=== PATIENT | female | born 1990 | race Caucasian/White ===

== ENCOUNTER → 2016-11-07 | Outpatient (REF) | payer OTHER ==
[2016-11-07 13:35] LABS: ANION GAP 9 MEQ/L (8-16); BLOOD UREA NITROGEN 15 MG/DL (7-18); CALCIUM LEVEL 8.9 MG/DL (8.5-10.1); CARBON DIOXIDE LEVEL 28 MEQ/L (21-32); CHLORIDE LEVEL 105 MEQ/L (98-107); CREATININE FOR GFR 0.77 MG/DL (0.55-1.02); FREE T4 0.91 NG/DL (0.76-1.46); GLOMERULAR FILTRATION RATE > 60.0 (>60); GLUCOSE, FASTING 92 MG/DL (70-105); POTASSIUM SERUM 4.3 MEQ/L (3.5-5.1); SODIUM LEVEL 142 MEQ/L (136-145)
[2016-11-07 14:23] LABS: LUTEINIZING HORMONE 6.8 mIU/mL
[2016-11-07 14:24] LABS: FOLLICLE STIMULATING HORMONE 7.3 mIU/mL
== END ==
LOC: M SFHCWAGY 10:41
PROVIDERS: ATTEND Nurse Practitioner Women's Health
DX: N92.6 Irregular menstruation, unspecified (principal)

== ENCOUNTER → 2016-11-30 | Outpatient (CLI) | payer OTHER ==
--- NOTE | 2016-11-30 13:49 | REP ---
PELVIC SONOGRAPHY: HISTORY: Irregular menstrual bleeding. Comparison study, December 17, 2011. FINDINGS: Uterine dimensions are 9.8 x 3.8 x 6.0 cm. Endometrial echo is 1.3 cm thick and centrally placed. No focal uterine mass is seen. No free fluid is noted. Transabdominal and transvaginal scanning are included. Transvaginal dimensions of the right ovary are 4.0 x 2.4 x 2.5 cm. Left ovarian dimensions are 4.4 x 1.9 x 2.7 cm. Visualized bladder interiano are smooth. IMPRESSION: Normal pelvic sonography.
== END ==
LOC: M WHC 11:30
PROVIDERS: ATTEND Nurse Practitioner Women's Health
DX: N92.6 Irregular menstruation, unspecified (principal); Z31.69 Encounter for other general counseling and advice on procreation

== ENCOUNTER → 2017-07-09 | Outpatient (REF) | payer OTHER | LOC: M SFHCWAGY 16:06 | PROVIDERS: ATTEND Nurse Practitioner Women's Health | DX: Z12.4 Encounter for screening for malignant neoplasm of cervix (principal) ==

== ENCOUNTER → 2018-04-09 | Outpatient (REF) | payer MEDICAID ==
[2018-04-09 15:23] LABS: ALBUMIN 3.9 GM/DL (3.2-5.2); ALBUMIN/GLOBULIN RATIO 1.26 (1.00-1.93); ALKALINE PHOSPHATASE 99 U/L (45-117); ALT/SGPT 38 U/L (12-78); AST/SGOT 22 U/L (7-37); BILIRUBIN,DIRECT 0.1 MG/DL (0.0-0.2); BILIRUBIN,TOTAL 0.4 MG/DL (0.2-1.0); CHOLESTEROL LEVEL 155 MG/DL (<200); HDL CHOLESTEROL 52 MG/DL (>40); NON-HDL-C 103 MG/DL; TRIGLYCERIDES LEVEL 180 MG/DL (<150)
[2018-04-09 15:48] LABS: ESTIMATED AVERAGE GLUCOSE 105 MG/DL (60-110); HEMOGLOBIN A1c 5.3 %
== END ==
LOC: M SFHCLERA 09:58
DX: E66.01 Morbid (severe) obesity due to excess calories (principal)

== ENCOUNTER 2021-06-01 00:38 | Emergency (ER) | payer OTHER, MEDICAID ==
[~2021-06-01] VITALS: Ht 167.6 cm; Wt 152.1 kg
[2021-06-01 00:40] VITALS: BP 133/81
--- OUTSIDE RECORDS SUMMARY | 2021-06-01 00:48 | CCD ---
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 Name Role Phone NO, PCP Unavailable Unavailable [facility] [place] Unavailable Unavailable Rosita Edwards MD Unavailable Unavailable Rosita Edwards MD Unavailable Unavailable Rosita Edwards MD Unavailable Unavailable Rosita Edwards MD Unavailable Unavailable Rosita Edwards MD Unavailable Unavailable Rosita Edwards MD Unavailable Unavailable Rosita Edwards MD Unavailable Unavailable Rosita Edwards MD Unavailable Unavailable Rosita Edwards MD Unavailable Unavailable Rosita Edwards MD Unavailable Unavailable Rosita Edwards MD Unavailable Unavailable Rosita Edwards MD Unavailable Unavailable Rosita Edwards MD Unavailable Unavailable Rosita Edwards MD Unavailable Unavailable Rosita Edwards MD Unavailable Unavailable Rosita Edwards MD Unavailable Unavailable Rosita Edwards MD Unavailable Unavailable Rosita Edwards MD Unavailable Unavailable Rosita Edwards MD Unavailable Unavailable Rosita Edwards MD Unavailable Unavailable Rosita Edwards MD Unavailable Unavailable Rosita Edwards MD Unavailable Unavailable Rosita Edwards MD Unavailable Unavailable Rosita Edwards MD Unavailable Unavailable Rosita Edwards MD Unavailable Unavailable Rosita Edwards MD Unavailable Unavailable Rosita Edwards MD Unavailable Unavailable Rosita Edwards MD Unavailable Unavailable Rosita Edwards MD Unavailable Unavailable Rosita Edwards MD Unavailable Unavailable Rosita Edwards MD Unavailable Unavailable Rosita Edwards MD Unavailable Unavailable Rosita Edwards MD Unavailable Unavailable Rosita Edwards MD Unavailable Unavailable Rosita Edwards MD Unavailable Unavailable Rosita Edwards MD Unavailable Unavailable Rosita Edwards MD Unavailable Unavailable Rosita Edwards MD Unavailable Unavailable Rosita Edwards MD Unavailable Unavailable Rosita Edwards MD Unavailable Unavailable Rosita Edwards MD Unavailable Unavailable Rosita Edwards MD Unavailable Unavailable Rosita Edwards MD Unavailable Unavailable Rosita Edwards MD Unavailable Unavailable Rosita Edwards MD Unavailable Unavailable Rosita Edwards MD Unavailable Unavailable Rosita Edwards MD Unavailable Unavailable Birchenough, R Phyllis DO Unavailable Unavailable Birchenough, R Phyllis DO Unavailable Unavailable Birchenough, R Phyllis DO Unavailable Unavailable Birchenough, R Phyllis DO Unavailable Unavailable Birchenough, R Phyllis DO Unavailable Unavailable Birchenough, R Phyllis DO Unavailable Unavailable Birchenough, R Phyllis DO Unavailable Unavailable Birchenough, R Phyllis DO Unavailable Unavailable Birchenough, R Phyllis DO Unavailable Unavailable Birchenough, R Phyllis DO Unavailable Unavailable Birchenough, R Phyllis DO Unavailable Unavailable Birchenough, R Phyllis DO Unavailable Unavailable Birchenough, R Phyllis DO Unavailable Unavailable Birchenough, R Phyllis DO Unavailable Unavailable Birchenough, R Phyllis DO Unavailable Unavailable Birchenough, R Phyllis DO Unavailable Unavailable Birchenough, R Phyllis DO Unavailable Unavailable Birchenough, R Phyllis DO Unavailable Unavailable Birchenough, R Phyllis DO Unavailable Unavailable Chema Sánchez MD Unavailable Unavailable Doctor Provided, Family PHYS No Family Unavailable U navailable TURRIN, DELANO Unavailable Unavailable TURRIN, DELANO Unavailable Unavailable TURRIN, DELANO Unavailable Unavailable TURRIN, DELANO Unavailable Unavailable Rosita Edwards MD Unavailable Unavailable Rosita Edwards MD Unavailable Unavailable Rosita Edwards MD Unavailable Unavailable Rosita Edwards MD Unavailable Unavailable Rosita Edwards MD Unavailable Unavailable Rosita Edwards MD Unavailable Unavailable Rosita Edwards MD Unavailable Unavailable Rosita Edwards MD Unavailable Unavailable Rosita Edwards MD Unavailable Unavailable Rosita Edwards MD Unavailable Unavailable Rosita Edawrds MD Unavailable Unavailable Rosita Edwards MD Unavailable Unavailable Rosita Edwards MD Unavailable Unavailable Rosita Edwards MD Unavailable Unavailable Brown, M Wander MD Unavailable Unavailable BrownRosita Wander MD Unavailable Unavailable Brown M Wander MD Unavailable Unavailable Brown, M Wander MD Unavailable Unavailable Brown, M Wander MD Unavailable Unavailable Brown M Wander MD Unavailable Unavailable Brown M Wander MD Unavailable Unavailable Brown M Wander MD Unavailable Unavailable Brown, M Wander MD Unavailable Unavailable Brown, M Wander MD Unavailable Unavailable Brown, M Wander MD Unavailable Unavailable Brown, M Wander MD Unavailable Unavailable Brown, M Wander MD Unavailable Unavailable Brown, M Wander MD Unavailable Unavailable Brown, M Wander MD Unavailable Unavailable Brown, M Wander MD Unavailable Unavailable Brown, M Wander MD Unavailable Unavailable Brown, M Wander MD Unavailable Unavailable Brown, M Wander MD Unavailable Unavailable Brown, M Wander MD Unavailable Unavailable Brown, M Wander MD Unavailable Unavailable Brown M Wander MD Unavailable Unavailable Brown M Wander MD Unavailable Unavailable Brown, M Wander MD Unavailable Unavailable Brown, M Wander MD Unavailable Unavailable Brown M Wander MD Unavailable Unavailable Brown, M Wander MD Unavailable Unavailable Brown M Wander MD Unavailable Unavailable Rosita Edwards Wander MD Unavailable Unavailable Rosita Edwards Wander MD Unavailable Unavailable Rosita Edwards Wander MD Unavailable Unavailable Brown M Wander MD Unavailable Unavailable Jerry M Wander MD Unavailable Unavailable Levi Schmid MD Unavailable Unavailable Re-disclosure Warning The records that you are about to access may contain information from federally-assisted alcohol or drug abuse programs. If such information is present, then the following federally mandated warning applies: This information has been disclosed to you from records protected by federal confidentiality rules (42 CFR part 2). The federal rules prohibit you from making any further disclosure of this information unless further disclosure is expressly permitted by the written consent of the person to whom it pertains or as otherwise permitted by 42 CFR part 2. A general authorization for the release of medical or other information is NOT sufficient for this purpose. The Federal rules restrict any use of the information to criminally investigate or prosecute any alcohol or drug abuse patient.The records that you are about to access may contain highly sensitive health information, the redisclosure of which is protected by Article 27-F of the [facility] Public Health law. If you continue you may have access to information: Regarding HIV / AIDS; Provided by facilities licensed or operated by the [facility] Office of Mental Health; or Provided by the [facility] Office for People With Developmental Disabilities. If such information is present, then the following [facility] mandated warning applies: This information has been disclosed to you from confidential records which are protected by state law. State law prohibits you from making any further disclosure of this information without the specific written consent of the person to whom it pertains, or as otherwise permitted by law. Any unauthorized further disclosure in violation of state law may result in a fine or longterm sentence or both. A general authorization for the release of medical or other information is NOT sufficient authorization for further disc losure. Family History Family Member Name Family Member Gender Family Member Status Date o f Status Description Data Source(s) Unknown Condition [facility] Unknown Condition [facility] Unknown Condition [facility] Unknown Condition [facility] Unknown Condition [facility] Unknown Condition [facility] Encounters Encounter Providers Location Date Indications Data Source(s ) Outpatient Attender: [facility] 05/31/2021 04:4 0:00 PM EDT [facility] Emergency Attender: DELANO Moesultant: PCP NO 05/31/2021 03:33:00 PM EDT - 05/31/2021 07:25:00 PM EDT [facility] Patient discharged. Attender: Wander Edwards MD 05/26/2021 04:14:50 PM EDT [facility] Outpatient Attender: Wander Edwards MDAdmitter: Wander avitia MD 05/24/2021 08:32:00 AM EDT - 05/24/2021 07:07:00 PM EDT IRREGULAR BLEEDING, N92.6 [facility] IRREGULAR BLEEDING, N92.6 Patient discharged. Outpatient Attender: Wander Edwards MD 05/22/2021 02:50:14 PM EDT [facility] Outpatient Attender: Wander Edwards MD 05/22/2021 01: 53:00 PM EDT ROBOTIC ASSISTED LAPAROSCOPIC HYSTERECTOMY BILATERAL SALPING [facility] ROBOTIC ASSISTED LAPAROSCOPIC HYSTERECTO MY BILATERAL SALPING Outpatient Attender: Phyllis Ornelaserrer: No Famil y Doctor Provided 01/17/2021 12:54:00 PM EDT - 01/17/2021 01:44:00 PM EDT [facility] [address] [place], [place] [id number] 06/21/2020 12:00:00 AM EST eCW1 ([facility]) Outpatient Attender: Dylon Schmid MD 06/02/2020 05:45: 00 PM EDT Z12.4 [facility] Z12.4 Outpatient Attender: Dylon Schmid MDReferrer: Chema elias MD 06/02/2020 11:26:00 AM EDT - 06/02/2020 12:10:00 PM EDT [facility] Immunizations Vaccine Date Status Description Data Source(s) COVID-19 VACCINE Pfizer 01/29/2021 12:00:00 AM EDT completed [facility] Vaccine Series Complete: YESThis Data wa s Submitted to [facility] Via [employer]. COVID-19 VACC, MRNA(PFIZER)/PF 01/29/2021 12:00:00 AM EDT completed [facility] COVID-19 VACC, MRNA(PFIZER)/PF 01/08/2021 12:00:00 AM EDT completed [facility] COVID-19 VACCINE Pfizer 01/08/2021 12:00:00 AM EDT completed [facility] Vaccine Series Complete: NOThis Data was Submitted to [facility] Via [employer]. Medications Medication Brand Name Start Date Product Form Dose Route Admi nistrative Instructions Pharmacy Instructions Status Indications Reaction Description Data Source(s) Metformin hydrochloride 500 MG Oral Tablet Metformin 08/24 09:49:51 AM EST 500 MG active [facility] Metformin hydrochloride 500 MG Oral Tablet Metformin 08/24 09:47:28 AM EST 500 MG completed [facility] Metformin hydrochloride 500 MG Oral Tablet Metformin 06/02 12:15:59 PM EDT 500 MG completed [facility] Metformin hydrochloride 500 MG Oral Tablet Metformin 05/23 12:53:53 PM EDT 500 MG completed [facility] Metformin hydrochloride 500 MG Oral Tablet Metformin 05/23 12:53:53 PM EDT 500 MG completed [facility] Metformin hydrochloride 500 MG Oral Tablet Metformin 11/23 01:23:52 PM EDT 500 MG completed [facility] Metformin hydrochloride 500 MG Oral Tablet Metformin 11/23 01:23:52 PM EDT 500 MG completed [facility] Acetaminophen 325 MG Oral Tablet Acetaminophen (Tyleno l) 325 MG tablet Acetaminophen (Tylenol) 325 MG tablet 08/07/2017 02:05:00 PM EST 650 M G completed [facility] Insurance Providers Payer name Policy type / Coverage type Policy ID Covered constitution party ID Covered constitution party's relationship to rodrigez Policy Rodrigez [id number] SP [id number] U UN COMMUNITY PLAN MCDO [id number] SP [id number] UN COMMUNITY PLAN XIX - OP/ER [id number] 18 [id number] [facility]/P [id number] [facility] HEA [id number] S [id number] ANSI-Medicaid [id number] ANSI-Medicaid [id number] ANSI-Medicaid [id number] ANSI-Medicaid [id number] MEDICAID [id number] SP [id number] [facility](MCAID) O [id number] S [id number] [facility] O [id number] S [id number] [place] [id number] S [id number] UN COMMUNITY PLAN MCDO [id number] SP [id number] MADDIE [id number] SP [id number] MADDIE [id number] SP [id number] [place] [id number] S [id number] [place] [id number] SP [id number] [employer] [id number] MO2 [id number] [employer] PPO P [id number] [facility] PLAN [id number] MO2 [id number] Problems, Conditions, and Diagnoses No Information Surgeries/Procedures No Information Results ID Date Data Source [id number] 05/31/2021 03:33:00 PM EDT [facility] 1 OrderSheet [facility] Emergency Department [address] [place] [address] Phone #: ext- [phone] 05/31/2021 15:33 Patient: TOYA MAYA Sex: F : 1990 Age: 31yWEIGHT:152.8 kg (M) HEIGHT:62 inches (E) BMI:61.7ALLERGIES: No Known Drug AllergyCHIEF COMPLAINT: "changed" mental statusLAB ORDERSOrder Description Priority Entered Acknowledged InitialedAcetaminophen STAT 16:29 05/31/2021 16:45 Sorbhe,Level Joel TEJADA;Ammonia Level STAT 16:29 05/31/2021 16:45 Joel Gilbert R.N.;Blood Culture STAT 16:29 05/31/2021 16:45 Sorbero,q10m X2 (Sched Joel Holt R.NChristal16:29 05/31/2021) PA;Blood Culture STAT 16:29 05/31/2021 16:45 Sorbero,q10m X2 (Sched Joel JohansenNChristal16:39 05/31/2021) TERRELL;CBC w Diff STAT 16:29 05/31/2021 16:45 Joel Gilbert R.N.;CMP STAT 16:29 05/31/2021 16:45 Joel Gilbert R.N.;ETOH STAT 16:29 05/31/2021 16:45 Joel Gilbert R.N.;Glucose, Random STAT 16:29 05/31/2021 16:45 Joel Gilbert R.N.;Lactic Acid STAT 16:29 05/31/2021 16:45 Joel Gilbert R.N.;PT/PTT STAT 16:29 05/31/2021 16:45 Joel Gilbert R.N.;Salicylate Level STAT 16:29 05/31/2021 16:45 Joel Gilbert R.N.; 2 OrderSheet [facility] Emergency Department [address] [place] [address] Phone #: ext- [phone] 05/31/2021 15:33 Patient: TOYA MAYA Sex: F : 1990 Age: 31yTroponin-T STAT 16:29 05/31/2021 16:46 Joel Gilbert R.N.;TSH STAT 16:29 05/31/2021 16:46 Joel Gilbert R.N.;Urine Drug Screen STAT 16:29 05/31/2021 Cancelled: Patient Refusal 19:25 Jesus De La Garza RN PA;Venous Blood Gas STAT 16:29 05/31/2021 16:46 Joel Gilebrt R.N.;UA Reflex to UA 16:29 05/31/2021 Ack'd: 19:24 Jesus De La Garza RNCulture Joel Kumar Cancelled: Patient Refusal 19:25 Jesus TEJADA; Frederic HALLDIAGNOSTIC STUDY ORDERSOrder Description Priority Entered Acknowledged InitialedCT Head W/O Cont STAT 16:29 05/31/2021 16:46 Ofelia,(Oxygen?(No)) Joel TEJADA; Reason for Study: Altered Mental StatusChest Portable 1 STAT 16:29 05/31/2021 16:46 Ofelia,View Joel Holt RChristalNChristal(Oxygen?(No)) PA; Reason for Study: Chest PainCT CTA CHEST STAT 18:36 05/31/2021 Initialed: 18:46 Jonathon Gilbert R.N.(NONCOR) Julian Kumar Cancelled: Patient Refusal 19:11 William BARLOW PA; Stacy TEJADA(Oxygen?(No))(IV?(Yes)) Reason for Study: SOB AMS recent surgery, evaluate for PEMEDICATION/IV/DRIP/FLUID ORDERSOrder Description Priority Entered Acknowledged InitialedNS IV 1000 mL 16:29 05/31/2021 17:01 Ofelia,Bolus: : Bolus 1000 Joel Holt R.N.mL (X1) PA;GENERAL ORDERSOrder Description Priority Entered Acknowledged InitialedCardiac Monitor 16:29 05/31/2021 16:45 Ofelia(continuous) Joel JohansenNChristal 3 OrderSheet [facility] Emergency Department [address] [place] [address] Phone #: ext- [phone] 05/31/2021 15:33 Patient: TOYA MAYA Sex: F : 1990 Age: 31y PA;EKG 16:29 05/31/2021 16:45 Joel GilbertNChristal PA;NPO 16:29 05/31/2021 16:45 Joel Gilbert.NChristal PA;Obtain Old Records 16:29 05/31/2021 16:45 Joel Gilbert.NChristal PA;Pulse oximeter 16:29 05/31/2021 16:45 Ofelia(Continuous) Joel Holt R.N. PA;Saline Lock 16:29 05/31/2021 17:01 Joel Gilbert.NChristal PA;Vitals 16:29 05/31/2021 16:45 Joel Gilbert R.N.;[Electronically signed by Jesus De La Garza RN (19:25 021)][Electronically signed by Joel Kumar (21:51 05/31/2021)][Electronically locked by Jesus De La Garza RN (19:25 05/31/2021)] Name Value Range Interpretation Code Description Data Isabel rce(s) Supporting Document(s) ID Date Data Source [id number] 05/31/2021 03:33:00 PM EDT [facility] 1 Medication Reconciliation Report [facility] Emergency Department [address] [place] [address] Phone #: ex t- [phone] 05/31/2021 15:33 Patient: TOYA MAYA Sex: F : 1990 Age: 31yWeight: 152.8 kgHeight/Length: 62 in.BMI: 61.7ALLERGIES: No Known Drug AllergyThe patient's Home Medications are listed below:CONTINUE TAKING THE FOLLOWING MEDICATIONS: Claritin Oral, dailyThe source(s) of the original Home Medication information:Not obtained.The following Medications were given to the patient in the Emergency Department:NS [IV] IV Fluids bolus 0, then 1500 mL/hr, administered: 17:01 05/31/2021The following Medications were prescribed to the patient:None. Name Value Range Interpretation Code Description Data Isabel rce(s) Supporting Document(s) ID Date Data Source [id number] 05/31/2021 03:33:00 PM EDT [facility] 1 Medication Administration Record [facility] Emergency Department [address] [place] [address] Phone #: ext- [phone] 05/31/2021 15:33 Patient: TOYA MAYA Sex: F : 1990 Age: 31yWeight: 152.8 kgHeight/Length: 62 inBMI: 61.7ALLERGIES: No Known Drug Allergy Date/Time Medication Administered Medication OrderedStart NS [IV] NS IV 1000 mL Bolus: : Bolus [id number] 05/31/2021 Dose: IV Fluids mL (X1)Jonathon Gilbert R.N. Rate: 1500 mL/hr over 40 minute(s)---- Dispensed: 1000 mL bagStop Site: #1 right AC17:59 05/31/2021Jonathon romero R.N. Name Value Range Interpretation Code Description Data Isabel rce(s) Supporting Document(s) ID Date Data Source [id number] 05/31/2021 03:33:00 PM EDT [facility] 1 General Instructions [facility] Emergency Department [address] [place] [address] Phone #: ext- [phone] 05/31/2021 15:33 Patient: TOYA MAYA Sex: F : 1990 Age: 31yINSTRUCTIONSWarnings: Further evaluation is necessary in order to conduct further tests. It is very important to follow upwith a healthcare provider.GENERAL WARNINGS: Return or contact your physician immediately if your condition worsens orchanges unexpectedly, if not improving as expected, or if other problems arise. Specifically return ifbreathing difficulty worsens.Your Current Medications: Your current home medications have been reviewed.CONTINUE TAKING THE FOLLOWING MEDICATIONS:Claritin Oral : daily.Follow-up:Follow up with your doctor tomorrow. Reason for referral: evaluation, treatment and send for OutpatientCTA. Summary of care provided to patient.Understanding of the discharge instructions verbalized by patient and family.AMA warnings: Time of assessment: 19:13 05/31/2021. Oriented to person, place, and time. Givesappropriate answers and rational explanation of refusal of care. No indication for involuntary commitmentis present, suicidal ideations, slurred speech or homicidal ideations. Speaks coherently.Clinical Impression: the patient has the capacity to make decisions regarding the medical care offered.Relevant issues reviewed and discussed with the patient and family. Aware of suspected diagnosissuggested by screening exam (Rule out Pulmonary E mbolism). The suspected diagnosis, based upon theinitiated medical screening exam, is Rule out PE and has been discussed with the patient and family.Acknowledges understanding of the reasons for recommendations regarding medical treatment andmedical tests. The recommended medical care being refused is CTA Cheat and has been discussed withthe patient and family. The risks of refusing recommended care that were disclosed are .Alternatives for the patient's care that were offered yet not feasible include transfer and evaluation byanother physician; alternatives for the patient's care that were o ffered yet unavailable include calling thepatient's physician. Discharge instructions were provided to the patient and responsible constitution party.REFUSAL OF CARE STATEMENT (patient to review and sign in discharge instructions):I have read this paragraph. I understand that a doctor at this hospital wants to give me certain medicalcare. The doctor explained that care to me, and I understand what that care is. The doctor also explainedto me what could happen to me if I leave here without having that care, and I understand what he said. Iknow that I am welcome to return to this hospital at any time to receive the recommended care or any othercare that I may need at any time, regardless of my ability to pay for such care. 2 General Instructions [facility] Emergency Department [address] [place] [address] Phone #: ext- [phone] 05/31/2021 15:33 Patient: TOYA MAYA Sariah Sex: F : 1990 Age: 31y(Electronically signed by TERRELL Pineda 05/31/2021 21:51) Name Value Range Interpretation Code Description Data Isabel rce(s) Supporting Document(s) ID Date Data Source [id number] 05/31/2021 03:33:00 PM EDT [facility] 1 Clinical Report - Nurses [facility] Emergency Department [address] [place] [address] Phone #: ext- [phone] 05/31/2021 15:33 Patient: TOYA MAYA Sex: F : 1990 Age: 31yTRIAGEArrived by private vehicle. Historian: patient.Acuity: LEVEL 3.Chief Complaint: (Confusion, Paranoid thoughts).Alert. No acute distress.This started 2 AM. Patient was last known well (18:00 05/30/2021). ( PT brought in by sister for reportsof pt being confused and paranoid. PT had [facility] Pts sister reports she was acting at baseline when she went to bed last night around 6 pm. PTshusband woke up around 2 am and said pt was hallucinating and confused. She was also complaining ofchest pain. Pt denies chest pain at time of triage.). She has had altered mental status reported by family.Treatment TROLLEY CLEANER:Seen within the last 30 days- hospitalized; seen for different problems.SEPSIS SCREEN: SIRS SCREEN NEGATIVE. SEPSIS SCREEN NEGATIVE. No suspected or confirmedsigns of infection present.CHANDA COMA SCORE: 15- eyes open- spontaneous (4); best verbal response- oriented (5); bestmotor response- obeys commands (6). --16:07 05/31/21 Rica Schrader R.N.15:59 05/31/21. BP: 148/84. HR: 81. RR: 18. O2 saturation: 100%. Temp: 97.1 F. Pain level now 0/10.--16:07 05/31/21 Rica Schrader R.N.Weight: 152.8 kg measured. Height/Length: 62 inches Estimated. BMI: 61.7. --16:05 05/31/21 Rica Schrader R.N.MedicationsClaritin Oral, daily. --16:05 05/31/21 Rica Schrader R.N.AllergiesNo Known Drug Allergy. --16:05 05/31/21 Rica Schrader R.N.PROBLEMS:Asthma.Seasonal allergic rhinitis.Asperger's disorder. --16:06 Rica Schrader R.N.ADDITIONAL SURGERIES: 2 Clinical Report - Nurses [facility] Emergency Department [address] [place] [address] Phone #: ext- [phone] 05/31/2021 15:33 Patient: TOYA MAYA Sex: F : 1990 Age: 31y Hysterectomy. PAD surgery. --16:06 05/31/21 Rica Schrader R.N. History PAST MEDICAL HX: Immunizations: up-to-date. Has had a hysterectomy. SOCIAL HX: Never smoker. No alcohol use or drug use. She was offered HIV testing but declined and hepatitis C testing but declined. She has not traveled outside the [place] Infectious disease exposure: The patient was not exposed to C-diff, MRSA, VRE, CRE or Coronavirus. SELF HARM ASSESSMENT: Self harm assessment was performed. The patient answered "no" to the question(s) "Have you recently felt down, depressed, or hopeless?", "Do you have thoughts of harming or killing yourself?", "Do you have a plan for harming or killing yourself?", "Have you recently had thoughts about harming or killing others?", "Do you have any dangerous items in your possession?", "Have you noticed less interest or pleasure in doing things?", "Are you here because you tried to hurt yourself?" and "Have you ever tried to hurt yourself before today?". ABUSE ASSESSMENT: No report of abuse. NUTRITIONAL RISK ASSESSMENT: The nutritional risk assessment revealed no deficiencies. FUNCTIONAL ASSESSMENT: Functional assessment: no impairments noted. LEARNING NEEDS ASSESSMENT: The learning needs assessment revealed no barriers. FALL RISK ASSESSMENT: Fall risk assessment completed. No risk factors identified. SKIN INTEGRITY ASSESSMENT: Skin integrity risk assessment completed. No skin integrity risk identified. --16:07 05/31/21 Rica Schrader R.N. Interventions Identification band on patient. To treatment room. No allergy band on patient. --16:07 05/31/21 Rica Schrader R.N.PHYSICAL VJBXHTDTPE32:17 05/31/21. Ambulatory to room. Patient gowned.GENERAL / NEURO / PSYCH: Awake. Oriented X 4. Alert. Appears in no acute distress. Speechnormal. Mood/affect normal. Moves all extremities equally. No motor deficit. No sensory deficit.HEENT: No facial asymmetry noted. Pharynx within normal limits.RESPIRATORY: Breath sounds within normal limits. Respirations not labored.CVS: Capillary refill less than 2 seconds.SKIN: Skin is intact, warm and dry. --16:24 05/31/21 Jonathon Gilbert R.N.NURSING PROGRESS NOTES16:25 05/31/21. Reassurance given. Two patient identifiers checked. Call light placed in reach. Side 3 Clinical Report - Nurses [facility] Emergency Department [address] [place] [address] Phone #: ext- [phone] 05/31/2021 15:33 Patient: TOYA MAYA Sex: F : 1990 Age: 31y rails up x 1. Bed placed in lowest position. Brakes of bed on. Patient ready for evaluation- PA notified. --16:25 05/31/21 Jonathon Gilbert R.N. 16:57 05/31/21. BP: 151/80. HR: 80. RR: 16. O2 saturation: 100%. --16:57 05/31/21 Alexia CRUSHERDemetria RODRÍGUEZ 16:56 05/31/2021 Site #1 started via IV in the right antecubital space with an 20g angiocath, with aseptic technique and good blood return; one attempt. Saline lock flushed with 10 mL saline. --17:01 05/31/21 Jonathon Gilbert R.N. 17:01 05/31/2021 Started bag #1 1000 mL IV Fluids NS; at 1500 mL/hr over 40 minute(s) via site #1 via IV pump. Allergies verified and confirmed 5 rights. IV patency established. IV site checked: no pain, redness, or swelling. IV flushed thoroughly pre- and post-medication administration. Information reviewed with patient including reason for taking this medication, signs of allergic reaction and precautions. Verbalizes understanding. --17:01 05/31/21 Jonathon Gilbert R.N. 17:30 05/31/21. BP: 146/83. HR: 94. RR: 15. O2 saturation: 100%. --17:30 05/31/21 [facility] 17:59 05/31/21. BP: 140/66. HR: 80. RR: 18. O2 saturation: 100%. --17:59 05/31/21 [facility] 17:59 05/31/2021 IV Fluids NS via IV site #1 Discontinued: bag #1 completed. Total amount infused: 1000 mL. IV patency established. IV site checked: no pain, redness, or swelling. IV flushed thoroughly. --18:00 05/31/21 Jonathon Gilbert R.N. 19:10 05/31/21. BP: 140/68. HR: 84. RR: 18. O2 saturation: 100%. --19:11 05/31/21 Alexia CRUSHERDemetria RODRÍGUEZ.DISPOSITION / DISCHARGE 19:10 10/20/21. BP: 140/68. HR: 84. RR: 18. O2 saturation: 100%. --19:13 05/31/21 Demetria Parsons ED Chanda Coma Scale: 15- eyes open- spontaneous (4); best verbal response- oriented (5); best motor response- obeys commands (6). Cardiac rhythm: normal sinus rhythm. The patient left the Emergency Department against medical advice and without completion of treatment; patient was accompanied by a chief inspector. The patient appears to be alert, oriented x4, coherent and in no acute distress. The patient notified staff prior to leaving the department and stated is leaving due to personal reasons. Notified the ED physician of patient departure. Prior to leaving, she was advised to stay for completion of treatment and return if needed. She was informed of the risks of leaving. Patient signed form prior to leaving. She left the Emergency Department ambulatory and via private vehicle. --19:23 05/31/21 Jesus De La Garza RN 19:22 05/31/21. Pain level now: 0/10. --19:23 05/31/21 Jesus De La Garza RN 4 Clinical Report - Nurses [facility] Emergency Department [address] [place] [address] Phone #: ext- [phone] 05/31/2021 15:33 Patient: TOYA MAYA Sex: F : 1990 Age: 31y 19:15 05/31/21. Temp: 98.1 F. --19:24 05/31/21 Jesus De La Garza RN.Locked/Released at 05/31/2021 19:25 by Jesus De La Garza RN Name Value Range Interpretation Code Description Data Isabel rce(s) Supporting Document(s) ID Date Data Source [id number] 05/31/2021 03:33:00 PM EDT [facility] 1 Clinical Report - Physicians/Mid Levels [facility] Emergency Department [address] [place] [address] Phone #: ext- [phone] 05/31/2021 15:33 Patient: TOYA MAYA Sex: F : 1990 Age: 31y Time Seen: 16:17 05/31/2021. Arrived- By private vehicle. Historian- patient and sister.HISTORY OF PRESENT ILLNESS Chief Complaint: CHANGED MENTAL STATUS. This started last night and is still present. It was abrupt in onset and has been intermittent. The patient has been disoriented and confused. (PT brought in by sister for reports of pt being confused and paranoid. PT had an outpatient laparoscopic hysterectomy done last Saturday at [facility]. Pts sister reports she was acting at baseline when she went to bed last night around 6 pm. PTs woke up around 2 am and said pt was hallucinating and confused. She was also complaining of chest pain. Pt denies chest pain at time of triage.). She has had altered mental status reported by family.). The patient was not found unresponsive. Not a snf resident. No history of chronic dementia. No change in diabetic routine, alcohol recently, recent drug use or medication given prior to arrival. Dextro stick was not low prior to arrival. No weakness, numbness or recent fall. No difficulty walking. Similar symptoms previously. None. Recent medical care: Not recently seen/assessed.REVIEW OF SYSTEMSThe patient has had a hysterectomy. No fever, headache, head injury, dizziness or difficulty breathing.No cough, sputum production, blurred vision, sore throat or abdominal pain. No nausea, diarrhea, blackstools, difficulty with urination or vomiting. No bloody stools. The patient has had chest pain.PAST HISTORYProblems:Asthma.Seasonal allergic rhinitis.Asperger's disorder. Additional Surgeries: Hysterectomy. PAD surgery. Medications: Claritin Oral, daily. Allergies: No Known Drug Allergy.SOCIAL HISTORYNever smoker. No alcohol use or drug use. 2 Clinical Report - Physicians/Mid Levels [facility] Emergency Department [address] [place] [address] Phone #: ext- [phone] 05/31/2021 15:33 Patient: TOYA MAYA Sex: F : 1990 Age: 31yPHYSICAL EXAMVital Signs: 05/31/2021 15:59 BP: 148/84. MAP: 105. HR: 81. RR: 18. O2 saturation: 100%. Temp: 97.1F. Have been reviewed as abnormal. Hypertensive. Oxygen saturation normal.Appearance: Alert. No acute distress.Head: Head atraumatic.Eyes: Pupils equal, round and reactive to light.ENT: Normal ENT inspection. Airway intact. Moist mucous membranes. Pharynx normal.Neck: Normal inspection. Neck supple.CVS: Normal heart rate and rhythm. Heart sounds normal.Respiratory: No respiratory distress. Decreased air movement. Breath sounds normal.Abdomen: Soft and nontender. No orga nomegaly.Back: Normal inspection.Skin: Skin warm and dry. Normal skin color. No rash. Normal skin turgor.Extremities: Extremities exhibit normal ROM. No lower extremity edema.Neuro: Alert. Oriented X 3. Mood/affect normal. Speech normal. Cranial nerves normal (as tested).No cerebellar findings. No motor deficit. No sensory deficit. Reflexes normal.LABS, X-RAYS, AND EKGChest X-ray: No acute disease. Views: supine AP (portable). The X-rays were interpreted by theradiologist and contemporaneously by me. Interpretation time: 19:10 05/31/2021.Laboratory Tests: Laboratory tests have been ordered, with results reviewed and considered in themedical decision making process. Acetaminophen Level: (RAVI: 05/31/2021 16:40) ( MsgRcvd 05/31/2021 17:27) Final results Test Result Flag Units (Reference) ACETAMINOPHEN <5.0 UG/ML (0.0 - 30.0) Ammonia Level: (RAVI: 05/31/2021 16:40) ( MsgRcvd 05/31/2021 17:33) Final results Test Result Flag Units (Reference) AMMONIA <17.0 L UG/DL (18.7 - 86.9) CBC w Diff: (RAVI: 05/31/2021 16:40) ( MsgRcvd 05/31/2021 17:02) Final results Test Result Flag Units (Reference) CBC W/AUTOMATED DIFF COMPLETE BLOOD COUNT WBC 10.5 10/uL (4.2 - 11.0) RBC 4.48 10/uL (4.20 - 5.40) HEMOGLOBIN 10.7 L g/dL (12.0 - 16.0) HEMATOCRIT 34.4 L % (37.0 - 47.0) MCV 76.8 L fL (81.0 - 101) MCH 23.9 L pg (27.0 - 34.0) MCHC 31.1 g/dL (31.0 - 36.0) RDW 16.9 H % (11.5 - 14.5) PLATELETS 413 10/uL (150 - 450) MPV 8.8 fL (7.4 - 10.4) NEUT 63.2 % (37.0 - 80.0) LYMPH 28.4 % (25.0 - 40.0) MONO 6.2 % (3.0 - 8.0) EOS 0.7 % (0.0 - 7.0) 3 Clinical Report - Physicians/Mid Levels [facility] Emergency Department [address] [place] [address] Phone #: ext- [phone] 05/31/2021 15:33 Patient: TOYA MAYA Sex: F : 1990 Age: 31y BASO 0.4 % (0.0 - 2.5) %IG 1.1 H % (0.0 - 0.0) %NRBC 0.0 % (0.0 - 0.0) #NEUT 6.63 10/uL (2.00 - 6.90) #LYMPH 2.97 10/uL (0.60 - 3.40) #MONO 0.65 10/uL (0.00 - 0.90) #EOS 0.07 10/uL (0.00 - 0.70) #BASO 0.04 10/uL (0.00 - 0.20) #IG 0.11 H 10/uL (0.00 - 0.10) #NRBC 0.00 10/uL (0.00 - 0.00) MANUAL DIFF NOT INDICATED RBC MORPH NOT INDICATEDCMP: (RAVI: 05/31/2021 16:40) ( MsgRcvd 05/31/2021 17:27) Final results Test Result Flag Units* * (Reference) COMPREHENSIVE METABOLIC PANEL COMPREHENSIVE METABOLIC PANEL SODIUM 139 mEq/L (134 - 153) POTASSIUM 3.8 mEq/L (3.6 - 5.0) CHLORIDE 103 mEq/L (98 - 107) CO2 22 MEQ/L (22 - 30) GLUCOSE 95 MG/DL (70 - 99) BUN 9 MG/DL (7 - 21) CREATININE 1.0 MG/DL (0.7 - 1.5) BUN/CREAT 9 (8 - 27) TOTAL PROTEIN 6.6 G/DL (6.3 - 8.2) ALBUMIN 4.2 G/DL (3.9 - 5.0) GLOBULIN 2.4 GM/DL (2.4 - 3.2) A/G RATIO 1.8 (0.8 - 2.0) CALCIUM 9.3 MG/DL (8.4 - 10.2) TOTAL BILI <0.7 MG/DL (0.2 - 1.3) ALKALINE PHOS 72 U/L (38 - 126) SGOT/AST 16 U/L (5 - 40) SGPT/ALT 18 U/L (7 - 56) ANION GAP 14.0 mmol/L (8.0 - 16.0) AGE 31 yrs NON-AA GFR >60 mL/min AFR AMER GFR >60 mL/min Male GFR Interprentation 20-49 yrs >60 mL/min Jozfno40-80 yrs >56 mL/min Normal 60-69 yrs >49 mL/min Normal 70-79yrs>42 mL/min Normal 80 and above >35 mL/min Normal Female GFRInterpretation 20-39 yrs >60 mL/min Normal 40-49 yrs >58 mL/minNormal 50-59 yrs >51 mL/min Normal 60-69 yrs >45 mL/min Xfamdo50-66 yrs >39 mL/min Normal 80 and above >32 mL/min NormalETOH: (RAVI: 05/31/2021 16:40) ( MsgRcvd 05/31/2021 17:27) Final results Test Result Flag Units (Reference) ALCOHOL <10.0 MG/DL ALCOHOL % 0.01 % (0.00 - 0.01) *FOR MEDICAL PURPOSES ONLY*Glucose, Random: (RAVI: 05/31/2021 16:29) ( MsgRcvd 05/31/2021 16:46) CanceledLactic Acid: (RAVI: 05/31/2021 16:40) ( MsgRcvd 05/31/2021 17:01) Final results Test Result Flag Units (Reference) 4 Clinical Report - Physicians/Mid Levels [facility] Emergency Department [address] [place] [address] Phone #: ext- [phone] 05/31/2021 15:33 Patient: TOYA MAYA Sex: F : 1990 Age: 31y LACTIC ACID 1.5 MMOL/L (0.2 - 2.2)PT/PTT: (RAVI: 05/31/2021 16:40) ( MsgRcvd 05/31/2021 17:15) Final results Test Result Flag Units (Reference) PROTIME 14.5 SECONDS (11.0 - 15.5) INR 1.12 (0.93 - 1.23) PTT 32.8 SECONDS (24.8 - 36.7) \\BLDo\\INR INTERPRETATION\\BLDx\\ Therapeutic range for Coumadin andrelated oral anticoagulants. -International Normalized Ratio (INR): 2.0 - 3.0 for VenousThrombosis, Pulmonary Embolus, Tissue heart valves, Acute [place] Atrial Fibrillation, Valvular heart diseaseand recurrent Systemic Embolism. -International Normalized Ratio (INR): 2.5 - 3.5 forMechanical Prosthetic valve.Salicylate Level: (RAVI: 05/31/2021 16:40) ( [facility] 05/31/2021 17:33) Final results Test Result Flag Units (Reference) SALICYLATE <0.5 L mg/dL (2.0 - 20.0)Troponin-T: (RAVI: 05/31/2021 16:40) ( [facility] 05/31/2021 17:16) Final results Test Result Flag Units (Reference) TROPONIN T < 0.01 NG/ML (0.00 - 0.10) TROPONIN T0.1 ng/ml Recommended as the clinical threshold value forTroponin T.TSH: (RAVI: 05/31/2021 16:40) ( [facility] 05/31/2021 17:27) Final results Test Result Flag Units (Reference) TSH 1.24 uIU/mL (0.47 - 5.01)Venous Blood Gas: (RAVI: 05/31/2021 16:40) ( [facility] 05/31/2021 17:01) Final results Test Result Flag Units (Reference) pH V 7.45 H (7.32 - 7.43) pCO2 V 32.9 L mm/HG (38.0 - 51.0) pO2 V 42.5 mm/HG (30.0 - 55.0) HCO3 V 22.4 meq/L (22.0 - 29.0) TCO2 V 23.4 meq/L (22.0 - 29.0) BASE EXCESS -1.0 (-2.0 - 2.0) O2 SAT V 80.6 % (40.0 - 85.0)Chest Portable 1 View: (RAVI: 05/31/2021 16:29) ( MsgRcvd 05/31/2021 18:59) In ProgressCHEST PORTABLEReason(s): Chest PainTRANSPORTATION: WC IV? O2? Oxygen?(No) Room: [place] [address] PHONE: [phone] FAX: [phone] Name .................. : FRANCESCO NAILSSSICA Sariah Acct Number.................. : [id number] ROOM. ................. : VT-30 MR Number ................... : [id number] Stay type ............. : E/R Discharge Date......... ... : Admit Date ......... : 05/31/21 Admit Phys .................... : LACY BESS Date of ....... : 1990 Family Phys ................... : NO PCP Phone .................. : [phone] Age ................................ : 31 5 Clinical Report - Physicians/Mid Levels [facility] Emergency Department [address] [place] [address] Phone #: ext- [phone] 05/31/2021 15:33 Patient: TOYA MAYA Sex: F : 1990 Age: 31y Film# .................. .:[id number] Sex ................................. : F Unsigned transcriptions are preliminary reports and do not represent a medical or legal document CHEST PORTABLE [id number] COMPLETE:05/31/21 18:32 CAIN 75103 Reason(s): Chest Pain PORTABLE CHEST SINGLE VIEW OBTAINED AT 4:58 PM HISTORY: Chest pain COMPARISON: None. FINDINGS: The examination is degraded by large patient body habitus. Mediastinal and hilar structures are normal. Cardiac silhouette is unremarkable. Lungs are clear. No pulmonary edema. No pleural effusions or pneumothorax. IMPRESSION: No acute disease. Electronically Reviewed and Signed By DCTNAME , SIGNDATE, JWS Transcribe Initials: JANELLE , Transcribe Date: 05/31/21 18:58, Dictation Date: <<REPDIST>> Page 1 of 1.PROGRESS AND PROCEDURESCourse of Care: 19:11 May 31 2021. Evaluation after observation and results of tests back. (Discussedexam findings and pt does not want to stay any longer for CTA Chest. Pt is with sister who is care takerand they will try and have the study done as an out patient tomorrow. Pt denies SOB or Chest Pain at thistime and is very anxious and would like to leave.). Patient and relative counseled in person regarding the patient's stable condition, test results, diagnosis and need for follow-up. Patient and relative agrees with plan of care. 19:12 May 31 2021.INSTRUCTIONS Warnings: Further evaluation is necessary in order to conduct further tests. It is very important to follow up 6 Clinical Report - Physicians/Mid Levels [facility] Emergency Department [address] [place] [address] Phone #: ext- [phone] 05/31/2021 15:33 Patient: TOYA MAYA Sex: F : 1990 Age: 31y with a healthcare provider. GENERAL WARNINGS: Return or contact your physician immediately if your condition worsens or changes unexpectedly, if not improving as expected, or if other problems arise. Specifically return if breathing difficulty worsens. Your Current Medications: Your current home medications have been reviewed. CONTINUE TAKING THE FOLLOWING MEDICATIONS: Claritin Oral : daily. Follow-up: Follow up with your doctor tomorrow. Reason for referral: evaluation, treatment and send for Outpatient CTA. Summary of care provided to patient. Understanding of the discharge instructions verbalized by patient and family. AMA warnings: Time of assessment: 19:13 05/31/2021. Oriented to person, place, and time. Gives appropriate answers and rational explanation of refusal of care. No indication for involuntary commitment is present, suicidal ideations, slurred speech or homicidal ideations. Speaks coherently. Clinical Impression: the patient has the capacity to make decisions regarding the medical care offered. Relevant issues reviewed and discussed with the patient and family. Aware of suspected diagnosis suggested by screening exam (Rule out Pulmonary Embolism). The suspected diagnosis, based upon the initiated medical screening exam, is Rule out PE and has been discussed with the patient and family. Acknowledges understanding of the reasons for recommendations regarding medical treatment and medical tests. The recommended medical care being refused is CTA Cheat and has been discussed with the patient and family. The risks of refusing recommended care that were disclosed are . Alternatives for the patient's care that were offered yet not feasible include transfer and evaluation by another physician; alternatives for the patient's care that were offered yet unavailable include calling the patient's physician. Discharge instructions were provided to the patient and responsible constitution party. REFUSAL OF CARE STATEMENT (patient to review and sign in discharge instructions): I have read this paragraph. I understand that a doctor at this hospital wants to give me certain medical care. The doctor explained that care to me, and I understand what that care is. The doctor also explained to me what could happen to me if I leave here without having that care, and I understand what he said. I know that I am welcome to return to this hospital at any time to receive the recommended care or any other care that I may need at any time, regardless of my ability to pay for such care.(Electronically signed by TERRELL Pineda 05/31/2021 21:51) Name Value Range Interpretation Code Description Data Isabel rce(s) Supporting Document(s) ID Date Data Source [id number] 05/31/2021 09:27:00 PM EDT [facility] [address] [place] [address] PHONE: [phone] FAX: [phone] Name .................. : FRANCESCO Rolle Acct Number.................. : [id number] ROOM. ................. : VT-30 MR Number ................... : [id number] Stay type ............. : E/R Discharge Date......... ... : 05/31/21 Admit Date ......... : 05/31/21 Admit Phys .................... : LACY BESS Date of ....... : 1990 Family Phys ................... : NO PCP Phone .................. : [phone] Age ................................ : 31 Film# .................. .:[id number] Sex ................................. : F Unsigned transcriptions are preliminary reports and do not represent a medical or legal document CT HEAD W/O CONTRAST [id number] COMPLETE:05/31/21 19:20 [facility] [id number] Reason(s): Altered Mental Status CT BRAIN WITHOUT IV CONTRAST INDICATION: Altered Mental status COMPARISON: None CONTRAST: None One or more of the following dose reduction techniques were utilized in effectively lowering the radiation dose for this examination: Automated Exposure Control, Adjustment of the mA and/or kV according to patient size, or Iterative Reconstruction. FINDINGS: Ventricles and sulci are normal in appearance. Phan white differentiation is intact. No extra-axial collection or intracranial hemorrhage. No indication of acute or prior ischemic CVA. No mass or mass effect. Calvarium and skull base are within normal limits. To the extent included sinuses are clear. IMPRESSION: Negative study. Electronically Reviewed and Signed By John Austin MD , 05/31/21 21:27, LOU Transcribe Initials: JANELLE , Transcribe Date: 05/31/21 20:32, Dictation Date: Copy for: STACY RICHEY via fax Copy for: EMERGENCY DEPT via [place] [address] [place] [address] PHONE: [phone] FAX: [phone] Name .................. : FRANCESCO NAILSSSRONA Rolle Acct Number.................. : [id number] ROOM. ................. : VT-30 MR Number ................... : [id number] Stay type ............. : E/R Discharge Date......... ... : 05/31/21 Admit Date ......... : 05/31/21 Admit Phys .................... : LACY BESS Date of ....... : 1990 Family Phys ................... : NO PCP Phone .................. : [phone] Age ................................ : 31 Film# .................. .:[id number] Sex ................................. : F Unsigned transcriptions are preliminary reports and do not represent a medical or legal document CT HEAD W/O CONTRAST [id number] COMPLETE:05/31/21 19:20 [facility] 04108 Reason(s): Altered Mental Status Copy for: 710 MED REC DISCHARGED Page 2 of 2 Name Value Range Interpretation Code Description Data Isabel rce(s) Supporting Document(s) ID Date Data Source [id number] 05/31/2021 09:26:00 [place] [address] PHONE: [phone] FAX: [phone] Name .................. : MAYA TOYA Sariah Acct Number.................. : [id number] ROOM. ................. : VT-30 MR Number ................... : [id number] Stay type ............. : E/R Discharge Date......... ... : Admit Date ......... : 05/31/21 Admit Phys .................... : LACY BESS Date of ....... : 1990 Family Phys ................... : NO PCP Phone .................. : [phone] Age ................................ : 31 Film# .................. .:[id number] Sex ................................. : F Unsigned transcriptions are preliminary reports and do not represent a medical or legal document CHEST PORTABLE [id number] COMPLETE:05/31/21 18:32 CAIN 37099 Reason(s): Chest Pain PORTABLE CHEST SINGLE VIEW OBTAINED AT 4:58 PM HISTORY: Chest pain COMPARISON: None. FINDINGS: The examination is degraded by large patient body habitus. Mediastinal and hilar structures are normal. Cardiac silhouette is unremarkable. Lungs are clear. No pulmonary edema. No pleural effusions or pneumothorax. IMPRESSION: No acute disease. Electronical ly Reviewed and Signed By John Austin MD , 05/31/21 21:26, LOU Transcribe Initials: JANELLE , Transcribe Date: 05/31/21 18:58, Dictation Date: Copy for: STACY RICHEY via fax Copy for: EMERGENCY DEPT via mode Copy for: 710 MED REC DISCHARGED Page 1 of 1 Name Value Range Interpretation Code Description Data Isabel rce(s) Supporting Document(s) ID Date Data Source [id number] 05/31/2021 05:33:00 PM EDT [facility] Name Value Range Interpretation Code Description Data Isabel rce(s) Supporting Document(s) SALICYLATE <0.5 mg/dL 2.0 - 20.0 L [facility] ID Date Data Source [id number] 05/31/2021 05:33:00 PM EDT [facility] Name Value Range Interpretation Code Description Data Isabel rce(s) Supporting Document(s) Ammonia [Mass/volume] in Plasma <17.0 UG/DL 18.7 - 86.9 L [facility] ID Date Data Source [id number] 05/31/2021 05:27:00 PM EDT [facility] Name Value Range Interpretation Code Description Data Isabel rce(s) Supporting Document(s) Thyrotropin [Units/volume] in Serum or Plasma by Detec tion limit <= 0.05 mIU/L 1.24 uIU/mL 0.47 - 5.01 [facility] ID Date Data Source [id number] 05/31/2021 05:27:00 PM EDT [facility] Name Value Range Interpretation Code Description Data Isabel rce(s) Supporting Document(s) Ethanol [Moles/volume] in Blood <10.0 MG/DL [facility] ALCOHOL % 0.01 % 0.00 - 0.01 [facility] ital *FOR MEDICAL PURPOSES ONLY * ID Date Data Source [id number] 05/31/2021 05:27:00 PM EDT [facility] Name Value Range Interpretation Code Description Data Isabel rce(s) Supporting Document(s) COMPREHENSIVE METABOLIC PANEL [facility] COMPREHENSIVE METABOLIC PANEL Sodium [Moles/volume] in Serum or Plasma 139 mEq/L 134 - 153 [facility] Potassium [Moles/volume] in Serum or Plasma 3.8 mEq/L 3.6 - 5.0 [facility] Chloride [Moles/volume] in Serum or Plasma 103 mEq/L 98 - 107 [facility] Carbon dioxide, total [Moles/volume] in Serum or Plasma 22 MEQ/L 22 - 30 [facility] Glucose [Mass/volume] in Serum or Plasma 95 MG/DL 70 - 99 [facility] BUN 9 MG/DL 7 - 21 [facility] Creatinine [Mass/volume] in Serum or Plasma 1.0 MG/DL 0.7 - 1.5 [facility] BUN/CREAT 9 8 - 27 [facility] al Protein [Mass/volume] in Serum or Plasma 6.6 G/DL 6.3 - 8.2 [facility] Albumin [Mass/volume] in Serum or Plasma 4.2 G/DL 3.9 - 5.0 [facility] Globulin [Mass/volume] in Serum by calculation 2.4 GM/DL 2.4 - 3.2 [facility] A/G RATIO 1.8 0.8 - 2.0 [facility] Calcium [Mass/volume] in Serum or Plasma 9.3 MG/DL 8.4 - 10.2 [facility] Bilirubin.total [Mass/volume] in Serum or Plasma <0.7 MG/DL 0.2 - 1.3 [facility] Alkaline phosphatase [Enzymatic activity/volume] in Serum or Plasma 72 U/L 38 - 126 [facility] Aspartate aminotransferase [Enzymatic activity/volume] in Serum or Plasma 16 U/L 5 - 40 [facility] Alanine aminotransferase [Enzymatic activity/volume] in Seru m or Plasma 18 U/L 7 - 56 [facility] Anion gap 3 in Serum or Plasma 14.0 mmol/L 8.0 - 16.0 [facility] AGE 31 yrs [facility] NON-AA GFR >60 mL/min [facility] ital AFR AMER GFR >60 mL/min [facility] Male GFR In terprentation 20-49 yrs >60 mL/min Normal 50-59 yrs >56 mL/min Normal 60-69 yrs >49 mL/min Normal 70-79yrs >42 mL/min Normal 80 and above >35 mL/min Normal Female GFR Interpretation 20-39 yrs >60 mL/min Normal 40-49 yrs >58 mL/min Normal 50-59 yrs >51 mL/min Normal 60-69 yrs >45 mL/min Normal 70-79 yrs >39 mL/min Normal 80 and above >32 mL/min Normal ID Date Data Source [id number] 05/31/2021 05:27:00 PM EDT [facility] Name Value Range Interpretation Code Description Data Isabel rce(s) Supporting Document(s) Acetaminophen [Presence] in Urine <5.0 UG/ML 0.0 - 30.0 [facility] ID Date Data Source [id number] 05/31/2021 05:16:00 PM EDT [facility] Name Value Range Interpretation Code Description Data [facility](s) Supporting Document(s) TROPONIN T <0.01 NG/ML 0.00 - 0.10 [facility] ospital TROPONIN T0.1 ng/ml Recommended as the c linical threshold value forTroponin T. ID Date Data Source [id number] 05/31/2021 05:15:00 PM EDT [facility] Name Value Range Interpretation Code Description Data Isabel rce(s) Supporting Document(s) Prothrombin time (PT) 14.5 SECONDS 11.0 - 15.5 [facility] INR in Platelet poor plasma by Coagulation assay 1.12 0.93 - 1. 23 [facility] aPTT in Blood by Coagulation assay 32.8 SECONDS 24.8 - 36.7 [facility] \\BLDo\\INR INTERPRETATION\\BLDx\\ Therapeutic range for Coumadin and related oral anticoagulants. - International Normalized Ratio (INR): 2.0 - 3.0 for Venous Thrombosis, Pulmonary Embolus, Tissue heart valves, Acute [place] Atrial Fibrillation, Valvular heart disease and recurrent Systemic Embolism. - International Normalized Ratio (INR): 2.5 - 3.5 for Mechanical Prosthetic valve. ID Date Data Source [id number] 05/31/2021 05:01:00 PM EDT [facility] Name Value Range Interpretation Code Description Data [facility](s) Supporting Document(s) CBC W/AUTOMATED DIFF [facility] COMPLETE BLOOD COUNT Leukocytes [#/volume] in Blood by Automated count 10.5 10^3/uL 4.2 - 11.0 [facility] Erythrocytes [#/volume] in Blood by Automated count 4.48 10^6/uL 4. 20 - 5.40 [facility] Hemoglobin [Mass/volume] in Blood 10.7 g/dL 12.0 - 16.0 L [facility] Hematocrit [Volume Fraction] of Blood by Automated count 34.4 % 3 7.0 - 47.0 L [facility] Erythrocyte mean corpuscular volume [Entitic volume] by Auto mated count 76.8 fL 81.0 - 101 L [facility] Erythrocyte mean corpuscular hemoglobin [Entitic mass] by Automated count 23.9 pg 27.0 - 34.0 L [facility] Erythrocyte mean corpuscular hemoglobin concentration [Mass/volume] by Automated count 31.1 g/dL 31.0 - 36.0 [facility] Erythrocyte distribution width [Ratio] by Automated count 16.9 % 11.5 - 14.5 H [facility] Platelets [#/volume] in Blood by Automated count 413 10^3/uL 150 - 45 0 [facility] Platelet mean volume [Entitic volume] in Blood by Automated count 8.8 fL 7.4 - 10.4 [facility] Neutrophils/100 leukocytes in Blood by Automated count 63.2 % 37. 0 - 80.0 [facility] Lymphocytes/100 leukocytes in Blood by Manual count 28.4 % 25.0 - 40.0 [facility] Monocytes/100 leukocytes in Blood by Automated count 6.2 % 3.0 - 8.0 [facility] Eosinophils/100 leukocytes in Blood by Automated count 0.7 % 0.0 - 7.0 [facility] Basophils/100 leukocytes in Blood by Automated count 0.4 % 0.0 - 2.5 [facility] %IG 1.1 % 0.0 - 0.0 [facility] %NRBC 0.0 % 0.0 - 0.0 [facility] al Neutrophils [#/volume] in Blood by Automated count 6.63 10^3/uL 2.00 - 6.90 [facility] Lymphocytes [#/volume] in Blood by Automated count 2.97 10^3/uL 0.60 - 3.40 [facility] Monocytes [#/volume] in Blood by Automated count 0.65 10^3/uL 0.00 - 0.90 [facility] Eosinophils [#/volume] in Blood by Automated count 0.07 10^3/uL 0.00 - 0.70 [facility] Basophils [#/volume] in Blood by Automated count 0.04 10^3/uL 0.00 - 0.20 [facility] #IG 0.11 10^3/uL 0.00 - 0.10 [facility] #NRBC 0.00 10^3/uL 0.00 - 0.00 [facility] ospital MANUAL DIFF NOT INDICATED [facility] RBC MORPH NOT INDICATED [facility] ID Date Data Source [id number] 05/31/2021 05:01:00 PM EDT [facility] Name Value Range Interpretation Code Description Data Isabel rce(s) Supporting Document(s) pH of Serum or Plasma 7.45 7.32 - 7.43 [facility] pCO2 V 32.9 mm/HG 38.0 - 51.0 L [facility] pO2 V 42.5 mm/HG 30.0 - 55.0 [facility] Bicarbonate [Moles/volume] in Venous blood 22.4 meq/L 22.0 - 29.0 [facility] TCO2 V 23.4 meq/L 22.0 - 29.0 [facility] Base excess in Blood by calculation -1.0 -2.0 - 2.0 [facility] O2 SAT V 80.6 % 40.0 - 85.0 [facility] ID Date Data Source [id number] 05/31/2021 05:01:00 PM EDT [facility] Name Value Range Interpretation Code Description Data Isabel rce(s) Supporting Document(s) Lactate [Moles/volume] in Serum or Plasma 1.5 MMOL/L 0.2 - 2.2 [facility] ID Date Data Source [id number] 05/26/2021 04:14:50 PM EDT [facility] [place], [place] [address]Tel# SURGICAL PATHOLOGY REPORTPatient Name:TOYA MAYA:1990Received:05/24/2021ccession #:[id number](s) Received: A: Uterus, cervix, bilateral tubesClinical Diagnosis and History: Irregular bleeding. DIAGNOSIS:UTERUS, HYSTERECTOMY (UTERINE WEIGHT 138 GM) CERVIX: ACUTE AND CHRONIC INFLAMMATION. ENDOMETRIUM: FOCAL COMPLEX HYPERPLASIA. NO ATYPIA IDENTIFIED. MYOMETRIUM: SMALL LEIOMYOMA. BILATERAL FALLOPIAN TUBES: NO SIGNIFICANT PATHOLOGIC CHANGES; PARATUBAL CYSTS. GROSS DESCRIPTION: Specimen received in formalin labeled "uterus, cervix, bilateral tubes"is a hysterectomy specimen measuring 9.5 cm from fundus to cervix, 7.4 cmfrom cornu to cornu, and 3.2 cm from anterior to posterior, with attachedbilateral fimbriated fallopian tubes measuring 7.0 x 1.2 cm on the rightand 7.6 x 1.0 cm on the left. The uterus without attached adnexa [id number] grams. The uterine serosa is pink-phan, smooth and glistening. Theectocervical mucosa is pink-white, smooth and measures 3.5 cm from 9-3:00,3.0 cm from 12-6:00, and surrounds a 0.9 cm, centrally located patentcervical os. 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 The 3.5 cm endocervical canalis pink-og and somewhat trabecular. Sectioning reveals a 0.3 x 0.2 x 0.2cm well circumscribed intramural nodule within the anterior myometriumwhich displays white whorled homogeneous cut surfaces. The endometriumhas a maximum thickness of 0.2 cm and the underlying myometrium ispink-phan, trabecular and averages 2.4 cm in thickness. The outersurfaces of both fallopian tubes are pink-purple, smooth and displaymultiple smooth thin walled cysts ranging from 0.2 x 0.2 x 0.1 cm to 0.8 x0.8 x 0.7 cm. Sectioning reveals stellate patent and unremarkable lumina. Dry Box Tender sections are submitted for microscopic examination asfollows: AC anterior cervix; PC posterior cervix; AE anteriorendometrium, to include intramural nodule; PE posterior endometrium; RT right fallopian tube; LT left fallopian tube. (6 blocks) alex cain/Aileeneported: 05/26/2021 16:13Electronically Signed Out By Chester Morales M.D. [facility] [place], [place] [address]Technical component performed at [facility], Histopathology, [address] [place] [address], [address].Reported at [facility], [address] [place] [address], [facility].This report may include immunohi stochemical or in-situ hybridizationresults. Testing was developed and the performance characteristicsdetermined by [facility] [employer] [facility], as required byCLIA '88. The FDA has determined that approval for specific use is notnecessary for clinical use. The quality of Hematoxylin and Eosin stainsand as applicable, for all immunohistochemical and/or special stains,including positive and negative controls, were reviewed and consideredappropriate.ICD codes: N93.8 D25.9CPT4 codes: A: 66762F Name Value Range Interpretation Code Description Data Isabel rce(s) Supporting Document(s) ID Date Data Source [id number] 05/22/2021 04:39:06 PM EDT [facility] ALPHONSE SPEC EXP DATE 05/27/2021ATI ENT ABO/Rh AB POSITIVEANTIBODY SCREEN NEGATIVETESTING SITE PERFORMED AT [address] [place] [address] Name Value Range Interpretation Code Description Data Isabel rce(s) Supporting Document(s) ID Date Data Source [id number] 05/22/2021 03:35:46 PM EDT [facility] DESIREEMelissa Name Value Range Interpretation Code Description Data Isabel rce(s) Supporting Document(s) HCG,QUANT PREG <1 mU/mL [facility] ALPHONSE INTERPRETATION:LESS THAN 6 NEGATIVE 6 - 10 BORDERLINE (SUGGEST REPEAT IN 48 HOURS) APPROX HCG RANGE WEEKS POST LMP 11 - 130 3 - 4 WEEKS 75 - 2600 4 - 5 WEEKS 850 - 46146 5 - 6 WEEKS 4000 - 646111 6 - 7 [id number] - [id number] 7 - 12 [id number] - [id number] 12 - 16 WEEKS 1400 - 65833 16 - 29 WEEKS 940 - 31635 29 - 41 WEEKS ID Date Data Source [id number] 05/22/2021 03:29:35 PM EDT [facility] RainbowMelissa Name Value Range Interpretation Code Description Data Isabel rce(s) Supporting Document(s) SODIUM 139 mmol/L (136-145) [facility] POTASSIUM 4.7 mmol/L (3.6-5.2) [facility] CHLORIDE 109 mmol/L (100-108) H [facility] CO2 26 mmol/L (22-31) [facility] ANION GAP 4 mmol/L (7-16) L [facility] UREA NITROGEN 14 mg/dL (7-24) [facility] CREATININE 0.81 mg/dL (0.60-1.00) [facility] BUN/CREAT RATIO 17.3 RATIO (10.0-20.0) [facility] GLUCOSE 84 mg/dL (70-99) [facility] CALCIUM 8.4 mg/dL (8.4-10.2) [facility] GFR >60 ml/min/1.73m2 (>59) [facility] GFR ( AMER) >60 ml/min/1.73m2 (>59) [facility] GFR INTERPRETATION [facility] --NORMAL KIDNEY FUNCTION OR MILD DISEASE - GFR >OR= 60CHRONIC KIDNEY DISEASE - GFR 15 - 59RENAL FAILURE - GFR <15 Est. GFR calculation based on the MDRDstudy equation, which assumes a steadystate for creatinine. Est. GFR should notbe used for medication dosing. ID Date Data Source [id number] 05/22/2021 02:50:13 PM EDT [facility] Name Value Range Interpretation Code Description Data [facility](s) Supporting Document(s) WBC 8.0 10*3/uL (4.1-11.0) [facility] RBC 4.79 10*6/uL (4.00-5.40) [facility] HGB 11.6 g/dL (12.0-16.0) L [facility] HCT 37.0 % (36.0-47.0) [facility] PERFORMED AT [address] [place] [address] MCV 77.1 fL (80.0-95.0) L [facility] MCH 24.2 pg (27.0-32.0) L [facility] MCHC 31.4 g/dL (32.0-36.0) L [facility] RDW 17.9 % (10.5-14.5) H [facility] PLT 320 10*3/uL (150-450) [facility] MPV 7.6 fL (7.1-10.7) [facility] ID Date Data Source [id number] 05/21/2021 12:00:00 AM EDT [facility] Name Value Range Interpretation Code Description Data Isabel rce(s) Supporting Document(s) SARS-COV-2 Negative [facility] This lab was ordered by Port[facility] and re ported by Port[facility]. ID Date Data Source [id number] 01/17/2021 01:05:00 PM EDT [facility] Patient Name: TOYA MAYA : 1990 Sex: F Pt Unit #: [id number] Location:[facility] Provider: Visit Date/Time: 01/17/21 Primary Insurance: [facility] Secondary Insurance: Self Pay Intake Vital Signs 01/17/21 13:06 Current Height 5 ft 6 in Current Weight 342 lb 4 oz Weight Measurement Method Standing Scale BMI 55.2 BP 122/76 Blood Pressure Location Lt brachial Position Sitting Respiration 18 Pulse 72 Pulse Strength Normal Pulse Source Pulse Oximeter Temp 97.6 F Temp Source Oral Pulse Oximetry (%) 96 Oxygen Delivery Method room air 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 She reports that she was placed on Metformin to regulate her periods. She reports that it was working alright until last month. She reports that she got her period in the beginning of December and just stopped bleeding yesterday. She reports that she wanted to try to have a baby but her and her have given up on that. Accompanied by: Self / Same as Patient Is patient in pain?: No Allergies No Known Drug Allergies Allergy (Unverified 03/21/20 19:56) Is last menstrual period known: Yes Post menopausal: No Patient : No Vision Wearing glasses?: No Fall Risk History of falls: No Ambulatory Aid:: None Gait/Transferring:: Normal Medications:: No High Risk Medications PHQ-2/9 Over the last 2 weeks, how often have you been bothered by any of the following problems? 1. Little interest or pleasure in doing things: not at all 2. Feeling down, depressed, or hopeless: not at all Total score: 0 HIV Testing Offer - ages 13-64 Requirement for HIV testing offer been met?: Declines today. Pretest education received and acknowledged SBIRT Annual Questionnaire Are you currently in recovery for alcohol or substance use?: No How many times in the past year have you had 4 or more drinks in a day?: None How many times in the past year have you used a recreational drug or used a prescription medication for nonmedical reasons?: None Coronavirus Screening Screening Are you currently positive or on isolation for COVID ?: No Do you have any NEW signs of one or more of the following?: no symptoms Do you have NEW signs of at least two of the following?: no symptoms HPI Additional HPI HPI Details: Toya presents to the clinic today for a discussion about a hysterectomy. She reports that she was placed on Metformin to regulate her periods. She reports that it was working alright until last month. She reports that she got her period in the beginning of December and just stopped bleeding yesterday. She reports that she wanted to try to have a baby but her and her have given up on that. She has gained a significant amount of weight, 68 lbs this year. [facility] Medical History Asthma Environmental allergies History of irregular menstrual cycles open heart surgery @ 2 months Primary female infertility Surgical History History of - surgery ( 05/1989) History of - surgery ( 1990) History of dilation and curettage Family History Mother Thyroid disease Sister Thyroid disease Grandmother Breast cancer Social History Does the Patient have a Healthcare Proxy: No Does Patient have a DNR?: No Does Patient have a Living Will?: No Does the Patient have a MOLST?: No Advance Directives on File or in chart?: No household members: spouse and family housing: house marital status: lives independently: Yes number of children: 0 number of grandchildren: 0 highest education level completed: Associate degree: academic program service: No snf: No current occupational status: unemployed pets and animals: Yes pets and animals: dog(s) Hx Recent Travel (where): No sexually active: Yes do you think of yourself as: straight/heterosexual current gender identity: female alcohol intake: current alcohol intake frequency: holidays/special occasions only substance use type: does not use bre/rastafarian: Episcopal do you feel safe at home: Yes victim of physical abuse: No victim of emotional abuse: No victim of sexual abuse: No Female Reproductive History Menstrual Age of Menarche: 11 Duration of menses: 3-5 days control me thod: none Total pregnancies: 0 Ab induced: 0 Ab spontaneous: 0 Ectopics: 0 Review of Systems Const Reports system reviewed and no additional complaints, except as documented and Denies headache(s) Eyes Denies loss of vision ENT Denies headache(s) Card Denies chest pain, Denies syncope, Denies leg edema, Denies lightheadedness, Denies palpitations andDenies dyspnea Resp Denies chest congestion, Denies cough and Denies dyspnea GI Denies abdominal pain, Denies bloating, Denies change in bowel habits and Denies heartburn Genitourinary: Reports as per HPI; Denies nipple discharge, dyspareunia, dysmenorrhea, pelvic pain, flank pain, urinary urgency, vaginal discharge or vaginal odor Musc Reports system reviewed and no additional complaints, except as documented Skin/Breast Denies nipple discharge Neuro Denies syncope, Denies headache(s) and Denies loss of vision Psych Denies depression Endo Reports system reviewed and no additional complaints, except as documented and Denies palpitations Jeronimo/Lymph Denies easy bruising and Denies lymphadenopathy Exam Const General: cooperative, no acute distress and disheveled Nutritional Appearance: obese Orientation: alert, awake and oriented x3 Resp Effort Inspection: normal respiratory effort and able to speak in complete sentences Neuro General: patient alert, patient awake, patient oriented x3 and moves all extremities Psych Appearance: grossly normal and well kempt Speech and Movement: speech and movement normal Assessment Plan Assessment Plan (1) Preoperative exam for gynecologic surgery: Code(s): Z01.818 - Encounter for other preprocedural examination (2) Abnormal uterine bleeding (AUB): Status: Acute Onset Date: 03/12/17 Comment: Discussed that Metformin can help people ovulate more regularly and regulate periods. However with her weight gain of almost 70 pounds this year that will greatly influence her menstrual cycle. I discussed hormonal methods to regulate her bleeding such as IUD, Depo, control pills. She would like to proceed with a hysterectomy. I discussed that she is still fairly young and that she was actively trying to get last year. I also discussed that I do not feel like she is a candidate for hysterectomy at our facility due to her weight at this present time. I discussed our current practice limits of BMI of 45 with conventional laparoscopy. I discussed increased risk of the surgery and higher BMI patients. Weight loss recommended. Which could regulate her periods. I discussed I would be happy to send her to another facility for second opinion about hysterectomy for and consideration for possible robotic hysterectomy. Code(s): N93.9 - Abnormal uterine and vaginal bleeding, unspecified SNOMED Code(s): 67822018048828 Category: Medical (3) Morbid obesity with BMI of 50.0-59.9, adult: Status: Acute Code(s): E66.01 - Morbid (severe) obesity due to excess ca lories; Z68.43 - Body mass index [BMI] 50.0-59.9, adult SNOMED Code(s): 949295266 Category: Medical Orders: Referrals Gynecologic Surgery Referral N93.9 - Abnormal uterine and vaginal bleeding, unspecified, E66.01 - Morbid (severe) obesity due to excess calories, Z68.43 - Body mass index [BMI] 50.0-59.9, adult Coding Level of Care Code 28074 Est Pt Intermediate Comp Diagnoses Preoperative exam for gynecologic surgery Z01.818 Abnormal uterine bleeding (AUB) N93.9 Morbid obesity with BMI of 50.0-59.9, adult E66.01; Z68.43 <Electronically signed by Phyllis Martinez DO> 01/30/21 0607 Name Value Range Interpretation Code Description Data Isabel rce(s) Supporting Document(s) ID Date Data Source [id number] 06/13/2020 07:13:00 AM EST [facility] LAST MENSTRUAL PERIOD 05/21/[id number] ollection Technique: BRUSH-ALONEPATIENT INFORMATION: [id number] CYTOLOGY: NEGATIVEPREVIOUS TREATMENT: NONEBody Site: CERVIX Name Value Range Interpretation Code Description Data Isabel rce(s) Supporting Document(s) Microscopic observation [Identifier] in Cervix by Cyto stain.thin pre p [facility] ID Date Data Source [id number] 06/02/2020 11:43:00 AM EDT [facility] Patient Name: TOYA MAYA : 1990 Sex: F Pt Unit #: [id number] Location:[facility] Provider: Visit Date/Time: 06/02/20 Primary Insurance: [employer] [facility] Secondary Insurance: Self Pay Intake Vital Signs 06/02/20 11:46 Current Height 5 ft 6 in Current Weight 297 lb 4 oz Weight Measurement Method Standing Scale BMI 47.9 BP 131/69 Blood Pressure Location Lt brachial Position Sitting Respiration 16 Pulse 69 Pulse Strength Normal Pulse Source Pulse Oximeter Temp 97.9 F Temp Source Oral Pulse Oximetry (%) 69 L Oxygen Delivery Method room air 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 LAST PAP WAS 08/07/17 NO HX ABN PAPS IN PAST.PAP IS DUE. SHE THINKS SHE MAY HAVE HAD A STD IN PAST ? CHLAMYDIA . SHE STATES THAT SHE IS ON METFORMIN 500 MG FOR HER "CYCLES" SHE DOES NOT THINK SHE HAS PCOS. 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 SHE DOES NOT USE ANY CONTRACEPTION STATES THATS . HER MATERNAL GM HAD BREAST CANCER. SHE WILL NEED REFILLS OF HER METFORMIN TO [facility]. SHE DOES NOT DO SBE DISCUSSED IMPORTANCE. 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 1. Little interest or pleasure in doing things: not at all 2. Feeling down, depressed, or hopeless: not at all Total score: 0 HIV Testing Offer - ages 13-64 Requirement for HIV testing offer been met?: Declines today. Pretest education received and acknowledged Coronavirus Screening Screening Have you traveled outside of [facility] or [facility] in the last 14 days.: No Has patient experienced coronavirus symptoms: No PFSH Medical History Asthma Environmental allergies History of irregular menstrual cycles open heart surgery @ 2 months Primary female infertility Surgical History History of - surgery ( 05/1989) History of - surgery ( 1990) History of dilation and curettage Family History Mother Thyroid disease Sister Thyroid disease Grandmother Breast cancer Social History Does the Patient have a Healthcare Proxy: No Does Patient have a DNR?: No Does Patient have a Living Will?: No Does the Patient have a MOLST?: No Advance Directives on File or in chart?: No household members: spouse and family housing: house marital status: lives independently: Yes number of children: 0 number of grandchildren: 0 highest education level completed: Associate degree: academic program service: No snf: No current occupational status: unemployed pets and animals: Yes pets and animals: dog(s) Hx Recent Travel (where): No sexually active: Yes do you think of yourself as: straight/heterosexual current gender identity: female alcohol intake: current alcohol intake frequency: holidays/special occasions only substance use type: does not use bre/rastafarian: Episcopal do you feel safe at home: Yes victim of physical abuse: No victim of emotional a buse: No victim of sexual abuse: No Female Reproductive History Menstrual Age of Menarche: 11 Duration of menses: 3-5 days Date of last menstrual period: 05/21/20 control method: none Total pregnancies: 0 Ab induced: 0 Ab spontaneous: 0 Ectopics: 0 HPI Additional HPI HPI Details: 30-year-old [place] presenting for an annual exam and her first Pap with HPV cotesting. Quite elevated BMI. She believes that her cycles are regular due to a low-dose of Metformin at 500 mg daily. No complaints. Review of Systems Const Reports system reviewed and no additional complaints, except as documented, Denies chills, Denies fever(s), Denies headache(s) and Reports weight gain Eyes Denies blurry vision and Denies spots in vision ENT Denies dizziness and Denies headache(s) Card Denies chest pain and Denies palpitations Resp Denies cough and Denies wheezing GI Denies constipation, Denies diarrhea, Denies nausea and Denies vomiting Genitourinary: Reports as per HPI; Denies nipple discharge, vaginal discharge, vaginal odor or vaginal pruritus Musc Denies back pain and Denies arthralgias Skin/Breast Denies hirsutism, Denies alopecia, Denies nipple discharge and Denies rash Neuro Denies dizziness and Denies headache(s) Psych Denies anxiety and Denies depression Endo Denies cold intolerance, Denies heat intolerance and Denies palpitations Jeronimo/Lymph Denies easy bleeding and Denies easy bruising Aller/Immun Denies wheezing Exam Const General: cooperative, healthy appearing, comfortable, no acute distress and well groomed Nutritional Appearance: overweight Orientation: alert and oriented x3 HENMT Head: normocephalic and atraumatic Eyes General: appearance normal, both eyes and all related structures Conjunctivae: conjunctivae normal Sclera: sclerae normal Neck Neck: full ROM and trachea midline Resp Effort Inspection: normal respiratory effort, able to speak in complete sentences, no audible wheezes and no cough Cardio Jugular venous pressure: no JVD Rate: regular rate Other: The patient was allowed privacy to drape for an exam, after which the physician returned to the room accompanied by a nursing chief bank examiner. The patient was assisted into lithotomy position. A lighted and lubricated speculum was then used to perform a gentle exam. The cervix was difficult tovisualize completely due to body habitus. The anterior lip appeared normal to visual inspection andthe transformation zone was not visible. A small amount of physiologic discharge was noted. Vaginal mucosa was pink and rugated. No lesions were visible. No blood was present. Whiff test was negative. Pap was obtained with broom and brush. This was all well-tolerated by the patient. Strongly suspect no transformation zone sampling, but viral PCR should still be valid. Musc Cervical Spine: cervical ROM normal Thoracic/Lumbar Spine: thoraco-lumbar ROM normal Skin Lesions: no lesions Rashes: no rashes Hair: normal Neuro General: patient alert and patient oriented x3 Cognition: normal cognition Speech: speech normal Gait: normal gait Sensory Exam: no sensory deficits noted Extrem General: normal to inspection, full ROM, no clubbing, cyanosis or edema and normal gait Psych Mental Status: mental status grossly normal Speech and Movement: speech and movement normal Mood: congruent mood Affect: normal affect Attitude: cooperative Thought Process: normal Thought Content: normal Insight: insight good Judgment: judgment good Assessment Plan Assessment Plan (1) Encounter for Routine Gynecological Exa mination: Code(s): Z01.419 - Encounter for gynecological examination (general) (routine) without abnormal findings Plan - Dylon Schmid MD: We reviewed guidelines for cervical cancer screening via Pap smear with human papilloma virus testing. The patient is aware that beyond age 30 the recommendations are for Pap smear with HPV cotesting. Pap smear intervals should be every 2 to 3 years until 2 negatives have been obtained. Following a second HPV negative Pap smear recommendations are that patients present for Pap smears every 5 years. This should continue to age 65. We will send her a results letter when data is available. We agreed to refill her daily Metformin, and explained that should she wish to pursue we would likely increase that dose to at least 1500/day and/or consider an ovulation induction medication. The patient has not planning to start a family soon. Orders Other Medications: New: metformin 500 mg PO QDAY 90 tabs 3RF PCOS Other Orders: Orders: PAP w HPV-Genotype if Positive Today Z12.4 <Electronically signed by Dylon Schmdi MD> 06/02/20 122 Name Value Range Interpretation Code Description Data Isabel rce(s) Supporting Document(s) Procedure Social History No Information
--- OUTSIDE RECORDS SUMMARY | 2021-06-01 01:55 | CCD ---
Author Author [facility] Organization [facility] Address Unknown Phone Unavailable Care Team Providers Care Cycle Specialist Name Role Phone NO, PCP Unavailable Unavailable Hospital Lab, [facility] [place] Unavailable Unavailable Rosita Edwards MD Unavailable Unavailable [...] is protected by Article 27-F of the [facility] Public Health law. If you continue you may have access to information: Regarding HIV / AIDS; Provided by facilities licensed or operated by the [facility] Office of Mental Health; or Provided by the [facility] Office for People With Developmental Disabilities. If such information is present, then the following [facility] mandated warning applies: This information [...] law may result in a fine or retirement sentence or both. A general authorization for the release of medical or other information is NOT sufficient authorization for further disc losure. Family History Family Member Name Family Member Gender Family Member Status Date o f Status Description Data Source(s) Unknown Condition [facility] Unknown Condition [facility] Unknown Condition [facility] Unknown Condition [facility] Unknown Condition [facility] Unknown Condition [facility] Encounters Encounter Providers Location Date Indications Data Source(s ) Outpatient Attender: [facility] Lab 05/31/2021 04:4 0:00 PM EDT [facility] Emergency Attender: DELANO Moesultant: PCP NO 05/31/2021 03:33:00 PM EDT - 05/31/2021 07:25:00 PM EDT [facility] Patient discharged. Attender: Wander Edwards MD 05/26/2021 04:14:50 PM EDT [facility] [place] [facility] Outpatient Attender: Wander Edwards MDAdmitter: Wander avitia MD 05/24/2021 08:32:00 AM EDT - 05/24/2021 07:07:00 PM EDT IRREGULAR BLEEDING, N92.6 [facility] IRREGULAR BLEEDING, N92.6 Patient discharged. Outpatient Attender: Wander Edwards MD 05/22/2021 02:50:14 PM EDT [facility] [place] [facility] Outpatient Attender: Wander Edwards MD 05/22/2021 01: 53:00 PM EDT ROBOTIC ASSISTED LAPAROSCOPIC HYSTERECTOMY BILATERAL SALPING [facility] ROBOTIC ASSISTED LAPAROSCOPIC HYSTERECTO MY BILATERAL SALPING Outpatient Attender: Phyllis Ornelaserrer: No Famil y Doctor Provided 01/17/2021 12:54:00 PM EDT - 01/17/2021 01:44:00 PM EDT [facility] [address] [place], [place] [address] 06/21/2020 12:00:00 AM EST eCW1 ([facility]) Outpatient Attender: Dylon Schmid MD 06/02/2020 05:45: 00 PM EDT Z12.4 [facility] Z12.4 Outpatient Attender: Dylon Schmid MDReferrer: Chema elias MD 06/02/2020 11:26:00 AM EDT - 06/02/2020 12:10:00 PM EDT [facility] Immunizations Vaccine Date Status Description Data Source(s) COVID-19 VACCINE Pfizer 01/29/2021 12:00:00 AM EDT completed [facility] Vaccine Series Complete: YESThis Data wa s Submitted to [facility] Via [facility]. COVID-19 VACC, MRNA(PFIZER)/PF 01/29/2021 12:00:00 AM EDT completed [facility] COVID-19 VACC, MRNA(PFIZER)/PF 01/08/2021 12:00:00 AM EDT completed [facility] COVID-19 VACCINE Pfizer 01/08/2021 12:00:00 AM EDT completed [facility] Vaccine Series Complete: NOThis Data was Submitted to [facility] Via [employer]. Medications Medication Brand Name Start Date Product Form Dose Route Admi nistrative Instructions Pharmacy Instructions Status Indications Reaction Description Data Source(s) Metformin hydrochloride 500 MG Oral Tablet Metformin 08/24 09:49:51 AM EST 500 MG active [facility] Metformin hydrochloride 500 MG Oral Tablet Metformin 08/24 09:47:28 AM EST 500 MG completed [facility] Metformin hydrochloride 500 MG Oral Tablet Metformin 06/02 12:15:59 PM EDT 500 MG completed [facility] Metformin hydrochloride 500 MG Oral Tablet Metformin 05/23 12:53:53 PM EDT 500 MG completed [facility] Metformin hydrochloride 500 MG Oral Tablet Metformin 05/23 12:53:53 PM EDT 500 MG completed [facility] Metformin hydrochloride 500 MG Oral Tablet Metformin 11/23 01:23:52 PM EDT 500 MG completed [facility] Metformin hydrochloride 500 MG Oral Tablet Metformin 11/23 01:23:52 PM EDT 500 MG completed [facility] Acetaminophen 325 MG Oral Tablet Acetaminophen (Tyleno l) 325 MG tablet Acetaminophen (Tylenol) 325 MG tablet 08/07/2017 02:05:00 PM EST 650 M G completed [facility] Insurance Providers Payer name Policy type / Coverage type Policy ID Covered democrat ID Covered democrat's relationship to rodrigez Policy Rodrigez [place] Information [place] [id number] SP [id number] U UN COMMUNITY PLAN MCDO [id number] SP [id number] UN COMMUNITY PLAN XIX - OP/ER [id number] 18 [id number] [facility]/P [id number] [facility] HEA [id number] S [id number] ANSI-Medicaid [id number] ANSI-Medicaid [id number] ANSI-Medicaid [id number] ANSI-Medicaid [id number] MEDICAID [id number] SP [id number] [facility](MCAID) O [id number] S [id number] [facility]) O [id number] S [id number] [facility] [facility] [place] O [id number] S [id number] UN COMMUNITY PLAN MCDO [id number] SP [id number] MADDIE [id number] SP [id number] MADDIE [id number] SP [id number] [place] [id number] S [id number] [place] [id number] SP [id number] [employer] [id number] MO2 [id number] [employer] PPO P [id number] [facility] PLAN [id number] MO2 [id number] Problems, Conditions, and Diagnoses No Information Surgeries/Procedures No Information Results ID Date Data Source [id number] 05/31/2021 03:33:00 PM EDT [facility] 1 OrderSheet [facility] Emergency Department [address] [place] [address] Phone #: ext- [phone] 05/31/2021 15:33 Patient: [...] 05/31/2021 16:45 Joel Gilbert R.N.; 2 OrderSheet [facility] Emergency Department [address] [place] [address] Phone #: ext- [phone] 05/31/2021 15:33 Patient: TOYA MAYA Sex: F : 1990 Age: 31yTroponin-T STAT 16:29 05/31/2021 16:46 Joel Gilbert R.N.;TSH STAT 16:29 05/31/2021 16:46 Joel Gilbert R.N.;Urine Drug Screen STAT 16:29 05/31/2021 Cancelled: Patient Refusal 19:25 Jesus De La Garza RN PA;Venous Blood Gas STAT 16:29 05/31/2021 16:46 Joel Gilbert R.N.;UA Reflex to UA 16:29 05/31/2021 Ack'd: [...] 05/31/2021 16:45 Ofelia(continuous) Joel JohansenNChristal 3 OrderSheet [facility] Emergency Department [address] [place] [address] Phone #: ext- [phone] 05/31/2021 15:33 Patient: [...] rce(s) Supporting Document(s) ID Date Data Source [id number] 05/31/2021 03:33:00 PM EDT [facility] 1 Medication Reconciliation Report [facility] Emergency Department [address] [place] [address] Phone #: ex t- [phone] 05/31/2021 15:33 [...] rce(s) Supporting Document(s) ID Date Data Source [id number] 05/31/2021 03:33:00 PM EDT [facility] 1 Medication Administration Record [facility] Emergency Department [address] [place] [address] Phone #: ext- [phone] 05/31/2021 15:33 Patient: TOYA MAYA Sex: F : 1990 Age: 31yWeight: 152.8 kgHeight/Length: 62 inBMI: 61.7ALLERGIES: No Known Drug Allergy Date/Time Medication Administered Medication OrderedStart NS [IV] NS IV 1000 mL Bolus: : Bolus [id number] 05/31/2021 Dose: IV Fluids mL (X1)Jonathon Gilbert R.N. Rate: 1500 mL/hr over 40 minute(s)---- Dispensed: 1000 mL bagStop Site: #1 right AC17:59 05/31/2021Jonathon romero R.N. Name Value Range Interpretation Code Description Data Isabel rce(s) Supporting Document(s) ID Date Data Source [id number] 05/31/2021 03:33:00 PM EDT [facility] 1 General Instructions [facility] Emergency Department [address] [place] [address] Phone #: ext- [phone] 05/31/2021 15:33 Patient: [...] were provided to the patient and responsible democrat.REFUSAL OF CARE STATEMENT (patient to review and [...] pay for such care. 2 General Instructions [facility] Emergency Department [address] [place] [address] Phone #: ext- [phone] 05/31/2021 15:33 Patient: TOYA MAYA Sariah Sex: F : 1990 Age: 31y(Electronically signed by TERRELL Pineda 05/31/2021 21:51) Name Value Range Interpretation Code Description Data Isabel rce(s) Supporting Document(s) ID Date Data Source [id number] 05/31/2021 03:33:00 PM EDT [facility] 1 Clinical Report - Nurses [facility] Emergency Department [address] [place] [address] Phone #: ext- [phone] 05/31/2021 15:33 Patient: [...] had altered mental status reported by family.Treatment NEONATAL INTENSIVE CARE UNIT NURSE:Seen within the last 30 days- hospitalized; seen [...] R.N.ADDITIONAL SURGERIES: 2 Clinical Report - Nurses [facility] Emergency Department [address] [place] [address] Phone #: ext- [phone] 05/31/2021 15:33 Patient: [...] on patient. --16:07 05/31/21 Rica Schrader R.N.PHYSICAL [id number] 05/31/21. Ambulatory to room. Patient gowned.GENERAL / [...] reach. Side 3 Clinical Report - Nurses [facility] Emergency Department [address] [place] [address] Phone #: ext- [phone] 05/31/2021 15:33 Patient: TOYA MAYA Sex: F : 1990 Age: 31y rails up x 1. Bed placed in lowest position. Brakes of bed on. Patient ready for evaluation- PA notified. --16:25 05/31/21 Jonathon Gilbert R.N. 16:57 05/31/21. BP: 151/80. HR: 80. RR: 16. O2 saturation: 100%. --16:57 05/31/21 Alexia BRIM ROUNDERDemetria RODRÍGUEZ 16:56 05/31/2021 Site #1 started via [...] RR: 15. O2 saturation: 100%. --17:30 05/31/21 [facility] 17:59 05/31/21. BP: 140/66. HR: 80. RR: 18. O2 saturation: 100%. --17:59 05/31/21 [facility] 17:59 05/31/2021 IV Fluids NS via IV site #1 Discontinued: bag #1 completed. Total amount infused: 1000 mL. IV patency established. IV site checked: no pain, redness, or swelling. IV flushed thoroughly. --18:00 05/31/21 Jonathon Gilbert R.N. 19:10 05/31/21. BP: 140/68. HR: 84. RR: 18. O2 saturation: 100%. --19:11 05/31/21 Alexia BRIM ROUNDERDemetria RODRÍGUEZ.DISPOSITION / DISCHARGE 19:10 10/20/21. BP: 140/68. HR: 84. RR: 18. O2 saturation: 100%. --19:13 05/31/21 Demetria [facility] ED Chanda Coma Scale: 15- eyes open- spontaneous (4); best verbal response- oriented (5); best motor response- obeys commands (6). Cardiac rhythm: normal sinus rhythm. The patient left the Emergency Department against medical advice and without completion of treatment; patient was accompanied by a engineering job titles. The patient appears to be alert, oriented [...] Garza RN 4 Clinical Report - Nurses [facility] Emergency Department [address] [place] [address] Phone #: ext- [phone] 05/31/2021 15:33 Patient: TOYA MAYA Sex: F : 1990 Age: 31y 19:15 05/31/21. Temp: 98.1 F. --19:24 05/31/21 Jesus De La Garza RN.Locked/Released at 05/31/2021 19:25 by Jesus De La Garza RN Name Value Range Interpretation Code Description Data Isabel rce(s) Supporting Document(s) ID Date Data Source [id number] 05/31/2021 03:33:00 PM EDT [facility] 1 Clinical Report - Physicians/Mid Levels [facility] Emergency Department [address] [place] [address] Phone #: ext- [phone] 05/31/2021 15:33 Patient: [...] outpatient laparoscopic hysterectomy done last Saturday at [facility]. Pts sister reports she was acting at baseline when she went to bed last night around 6 pm. PTs woke up around 2 am and said pt was hallucinating and confused. She was also complaining of chest pain. Pt denies chest pain at time of triage.). She has had altered mental status reported by family.). The patient was not found unresponsive. Not a jail resident. No history of chronic dementia. No [...] use. 2 Clinical Report - Physicians/Mid Levels [facility] Emergency Department [address] [place] [address] Phone #: ext- [phone] 05/31/2021 15:33 Patient: TOYA MAYA Sex: F [...] 7.0) 3 Clinical Report - Physicians/Mid Levels [facility] Emergency Department [address] [place] [address] Phone #: ext- [phone] 05/31/2021 15:33 Patient: [...] Male GFR Interprentation 20-49 yrs >60 mL/min Mwifcn65-88 yrs >56 mL/min Normal 60-69 yrs >49 mL/min Normal 70-79yrs>42 mL/min Normal 80 and above >35 mL/min Normal Female GFRInterpretation 20-39 yrs >60 mL/min Normal 40-49 yrs >58 mL/minNormal 50-59 yrs >51 mL/min Normal 60-69 yrs >45 mL/min Kbcxls47-60 yrs >39 mL/min Normal 80 and above [...] (Reference) 4 Clinical Report - Physicians/Mid Levels [facility] Emergency Department [address] [place] [address] Phone #: ext- [phone] 05/31/2021 15:33 Patient: [...] VenousThrombosis, Pulmonary Embolus, Tissue heart valves, Acute SC Atrial Fibrillation, Valvular heart diseaseand recurrent Systemic Embolism. -International Normalized Ratio (INR): 2.5 - 3.5 forMechanical Prosthetic valve.Salicylate Level: (RAVI: 05/31/2021 16:40) ( [facility] 05/31/2021 17:33) Final results Test Result Flag Units (Reference) SALICYLATE <0.5 L mg/dL (2.0 - 20.0)Troponin-T: (RAVI: 05/31/2021 16:40) ( [facility] 05/31/2021 17:16) Final results Test Result Flag Units (Reference) TROPONIN T < 0.01 NG/ML (0.00 - 0.10) TROPONIN T0.1 ng/ml Recommended as the clinical threshold value forTroponin T.TSH: (RAVI: 05/31/2021 16:40) ( [facility] 05/31/2021 17:27) Final results Test Result Flag Units (Reference) TSH 1.24 uIU/mL (0.47 - 5.01)Venous Blood Gas: (RAVI: 05/31/2021 16:40) ( [facility] 05/31/2021 17:01) Final results Test Result Flag [...] O2? Oxygen?(No) Room: [place] [address] PHONE: [phone] FAX: [phone] Name .................. : FRANCESCO NAILSSSICA Sariah Acct Number.................. : [id number] ROOM. ................. : VT-30 MR Number ................... : [id number] Stay type ............. : E/R Discharge Date......... ... : Admit Date ......... : 05/31/21 Admit Phys .................... : LACY BESS Date of ....... : 1990 Family Phys ................... : NO PCP Phone .................. : [phone] Age ................................ : 31 5 Clinical Report - Physicians/Mid Levels [facility] Emergency Department [address] [place] [address] Phone #: ext- [phone] 05/31/2021 15:33 Patient: TOYA MAYA Sex: F : 1990 Age: 31y Film# .................. .:[id number] Sex ................................. : F Unsigned transcriptions are preliminary reports and do not represent a medical or legal document CHEST PORTABLE [id number] COMPLETE:05/31/21 18:32 CAIN 48339 Reason(s): Chest Pain PORTABLE CHEST SINGLE VIEW [...] up 6 Clinical Report - Physicians/Mid Levels [facility] Emergency Department [address] [place] [address] Phone #: ext- [phone] 05/31/2021 15:33 Patient: [...] were provided to the patient and responsible democrat. REFUSAL OF CARE STATEMENT (patient to review [...] rce(s) Supporting Document(s) ID Date Data Source [id number] 05/31/2021 09:27:00 PM EDT [facility] [address] [place] [address] PHONE: [phone] FAX: [phone] Name .................. : FRANCESCO Rolle Acct Number.................. : [id number] ROOM. ................. : VT-30 MR Number ................... : [id number] Stay type ............. : E/R Discharge Date......... ... : 05/31/21 Admit Date ......... : 05/31/21 Admit Phys .................... : LACY BESS Date of ....... : 1990 Family Phys ................... : NO PCP Phone .................. : [phone] Age ................................ : 31 Film# .................. .:[id number] Sex ................................. : F Unsigned transcriptions are preliminary reports and do not represent a medical or legal document CT HEAD W/O CONTRAST [id number] COMPLETE:05/31/21 19:20 [facility] [address] Reason(s): Altered Mental Status CT BRAIN WITHOUT [...] via fax Copy for: EMERGENCY DEPT via [employer] [address] [place] [address] PHONE: [phone] FAX: [phone] Name .................. : FRANCESCO NAILSSSRONA Rolle Acct Number.................. : [id number] ROOM. ................. : VT-30 MR Number ................... : [id number] Stay type ............. : E/R Discharge Date......... ... : 05/31/21 Admit Date ......... : 05/31/21 Admit Phys .................... : LACY BESS Date of ....... : 1990 Family Phys ................... : NO PCP Phone .................. : [phone] Age ................................ : 31 Film# .................. .:[id number] Sex ................................. : F Unsigned transcriptions are preliminary reports and do not represent a medical or legal document CT HEAD W/O CONTRAST [id number] COMPLETE:05/31/21 19:20 [facility] [address] Reason(s): Altered Mental Status Copy for: 710 MED REC DISCHARGED Page 2 of 2 Name Value Range Interpretation Code Description Data Isabel rce(s) Supporting Document(s) ID Date Data Source [id number] 05/31/2021 09:26:[place] [address] PHONE: [phone] FAX: [phone] Name .................. : MAYA TOYA Sariah Acct Number.................. : [id number] ROOM. ................. : VT-30 MR Number ................... : [id number] Stay type ............. : E/R Discharge Date......... ... : Admit Date ......... : 05/31/21 Admit Phys .................... : LACY BESS Date of ....... : 1990 Family Phys ................... : NO PCP Phone .................. : [phone] Age ................................ : 31 Film# .................. .:[id number] Sex ................................. : F Unsigned transcriptions are preliminary reports and do not represent a medical or legal document CHEST PORTABLE [id number] COMPLETE:05/31/21 18:32 CAIN 05554 Reason(s): Chest Pain PORTABLE CHEST SINGLE VIEW [...] rce(s) Supporting Document(s) ID Date Data Source [id number] 05/31/2021 05:33:00 PM EDT [facility] Name Value Range Interpretation Code Description Data Isabel rce(s) Supporting Document(s) SALICYLATE <0.5 mg/dL 2.0 - 20.0 L [facility] ID Date Data Source [id number] 05/31/2021 05:33:00 PM EDT [facility] Name Value Range Interpretation Code Description Data Isabel rce(s) Supporting Document(s) Ammonia [Mass/volume] in Plasma <17.0 UG/DL 18.7 - 86.9 L [facility] ID Date Data Source [id number] 05/31/2021 05:27:00 PM EDT [facility] Name Value Range Interpretation Code Description Data Isabel rce(s) Supporting Document(s) Thyrotropin [Units/volume] in Serum or Plasma by Detec tion limit <= 0.05 mIU/L 1.24 uIU/mL 0.47 - 5.01 [facility] ID Date Data Source [id number] 05/31/2021 05:27:00 PM EDT [facility] Name Value Range Interpretation Code Description Data Isabel rce(s) Supporting Document(s) Ethanol [Moles/volume] in Blood <10.0 MG/DL [facility] ALCOHOL % 0.01 % 0.00 - 0.01 [facility] *FOR MEDICAL PURPOSES ONLY * ID Date Data Source [id number] 05/31/2021 05:27:00 PM EDT [facility] Name Value Range Interpretation Code Description Data Isabel rce(s) Supporting Document(s) COMPREHENSIVE METABOLIC PANEL [facility] COMPREHENSIVE METABOLIC PANEL Sodium [Moles/volume] in Serum or Plasma 139 mEq/L 134 - 153 [facility] Potassium [Moles/volume] in Serum or Plasma 3.8 mEq/L 3.6 - 5.0 [facility] Chloride [Moles/volume] in Serum or Plasma 103 mEq/L 98 - 107 [facility] Carbon dioxide, total [Moles/volume] in Serum or Plasma 22 MEQ/L 22 - 30 [facility] Glucose [Mass/volume] in Serum or Plasma 95 MG/DL 70 - 99 [facility] BUN 9 MG/DL 7 - [facility] Creatinine [Mass/volume] in Serum or Plasma 1.0 MG/DL 0.7 - 1.5 [facility] BUN/CREAT 9 8 - 27 [facility] Protein [Mass/volume] in Serum or Plasma 6.6 G/DL 6.3 - 8.2 [facility] Albumin [Mass/volume] in Serum or Plasma 4.2 G/DL 3.9 - 5.0 [facility] Globulin [Mass/volume] in Serum by calculation 2.4 GM/DL 2.4 - 3.2 [facility] A/G RATIO 1.8 0.8 - 2.0 [facility] Calcium [Mass/volume] in Serum or Plasma 9.3 MG/DL 8.4 - 10.2 [facility] Bilirubin.total [Mass/volume] in Serum or Plasma <0.7 MG/DL 0.2 - 1.3 [facility] Alkaline phosphatase [Enzymatic activity/volume] in Serum or Plasma 72 U/L 38 - 126 [facility] Aspartate aminotransferase [Enzymatic activity/volume] in Serum or Plasma 16 U/L 5 - 40 [facility] Alanine aminotransferase [Enzymatic activity/volume] in Seru m or Plasma 18 U/L 7 - 56 [facility] Anion gap 3 in Serum or Plasma 14.0 mmol/L 8.0 - 16.0 [facility] AGE 31 yrs [facility] NON-AA GFR >60 mL/min [facility] AFR AMER GFR >60 mL/min [facility] Male GFR In terprentation [...] >32 mL/min Normal ID Date Data Source [id number] 05/31/2021 05:27:00 PM EDT [facility] Name Value Range Interpretation Code Description Data Isabel rce(s) Supporting Document(s) Acetaminophen [Presence] in Urine <5.0 UG/ML 0.0 - 30.0 [facility] ID Date Data Source [id number] 05/31/2021 05:16:00 PM EDT [facility] Name Value Range Interpretation Code Description Data [facility](s) Supporting Document(s) TROPONIN T <0.01 NG/ML 0.00 - 0.10 [facility] o[facility]ital TROPONIN T0.1 ng/ml Recommended as the c linical threshold value forTroponin T. ID Date Data Source [id number] 05/31/2021 05:15:00 PM EDT [facility] Name Value Range Interpretation Code Description Data Isabel rce(s) Supporting Document(s) Prothrombin time (PT) 14.5 SECONDS 11.0 - 15.5 [facility] INR in Platelet poor plasma by Coagulation assay 1.12 0.93 - 1. 23 [facility] aPTT in Blood by Coagulation assay 32.8 SECONDS 24.8 - 36.7 [facility] \\BLDo\\INR INTERPRETATION\\BLDx\\ Therapeutic range for Coumadin and related oral anticoagulants. - International Normalized Ratio (INR): 2.0 - 3.0 for Venous Thrombosis, Pulmonary Embolus, Tissue heart valves, Acute SC Atrial Fibrillation, Valvular heart disease and recurrent Systemic Embolism. - International Normalized Ratio (INR): 2.5 - 3.5 for Mechanical Prosthetic valve. ID Date Data Source [id number] 05/31/2021 05:01:00 PM EDT [facility] Name Value Range Interpretation Code Description Data [facility](s) Supporting Document(s) CBC W/AUTOMATED DIFF [facility] COMPLETE BLOOD COUNT Leukocytes [#/volume] in Blood by Automated count 10.5 10^3/uL 4.2 - 11.0 [facility] Erythrocytes [#/volume] in Blood by Automated count 4.48 10^6/uL 4. 20 - 5.40 [facility] Hemoglobin [Mass/volume] in Blood 10.7 g/dL 12.0 - 16.0 L [facility] Hematocrit [Volume Fraction] of Blood by Automated count 34.4 % 3 7.0 - 47.0 L [facility] Erythrocyte mean corpuscular volume [Entitic volume] by Auto mated count 76.8 fL 81.0 - 101 L [facility] Erythrocyte mean corpuscular hemoglobin [Entitic mass] by Automated count 23.9 pg 27.0 - 34.0 L [facility] Erythrocyte mean corpuscular hemoglobin concentration [Mass/volume] by Automated count 31.1 g/dL 31.0 - 36.0 [facility] Erythrocyte distribution width [Ratio] by Automated count 16.9 % 11.5 - 14.5 H [facility] Platelets [#/volume] in Blood by Automated count 413 10^3/uL 150 - 45 0 [facility] Platelet mean volume [Entitic volume] in Blood by Automated count 8.8 fL 7.4 - 10.4 [facility] Neutrophils/100 leukocytes in Blood by Automated count 63.2 % 37. 0 - 80.0 [facility] Lymphocytes/100 leukocytes in Blood by Manual count 28.4 % 25.0 - 40.0 [facility] Monocytes/100 leukocytes in Blood by Automated count 6.2 % 3.0 - 8.0 [facility] Eosinophils/100 leukocytes in Blood by Automated count 0.7 % 0.0 - 7.0 [facility] Basophils/100 leukocytes in Blood by Automated count 0.4 % 0.0 - 2.5 [facility] %IG 1.1 % 0.0 - [facility] 0.0 % 0.0 - 0.0 [facility] Neutrophils [#/volume] in Blood by Automated count 6.63 10^3/uL 2.00 - 6.90 [facility] Lymphocytes [#/volume] in Blood by Automated count 2.97 10^3/uL 0.60 - 3.40 [facility] Monocytes [#/volume] in Blood by Automated count 0.65 10^3/uL 0.00 - 0.90 [facility] Eosinophils [#/volume] in Blood by Automated count 0.07 10^3/uL 0.00 - 0.70 [facility] Basophils [#/volume] in Blood by Automated count 0.04 10^3/uL 0.00 - 0.20 [facility] #IG 0.11 10^3/uL 0.00 - 0.10 [facility] #NRBC 0.00 10^3/uL 0.00 - 0.00 [facility]ital MANUAL DIFF NOT INDICATED [facility] RBC MORPH NOT INDICATED [facility] ID Date Data Source [id number] 05/31/2021 05:01:00 PM EDT [facility] Name Value Range Interpretation Code Description Data Isabel rce(s) Supporting Document(s) pH of Serum or Plasma 7.45 7.32 - 7.43 H [facility] pCO2 V 32.9 mm/HG 38.0 - 51.0 L [facility] pO2 V 42.5 mm/HG 30.0 - 55.0 [facility] Bicarbonate [Moles/volume] in Venous blood 22.4 meq/L 22.0 - 29.0 [facility] TCO2 V 23.4 meq/L 22.0 - 29.0 [facility] Base excess in Blood by calculation -1.0 -2.0 - 2.0 [facility] O2 SAT V 80.6 % 40.0 - 85.0 [facility] ID Date Data Source [id number] 05/31/2021 05:01:00 PM EDT [facility] Name Value Range Interpretation Code Description Data Isabel rce(s) Supporting Document(s) Lactate [Moles/volume] in Serum or Plasma 1.5 MMOL/L 0.2 - 2.2 [facility] ID Date Data Source [id number] 05/26/2021 04:14:50 PM EDT [facility] [place], [place] [address]Tel# SURGICAL PATHOLOGY REPORTPatient Name:TOYA MAYA:1990Received:05/24/2021ccession #:[id number](s) [...] the left. The uterus without attached adnexa aapbzm944 grams. The uterine serosa is pink-phan, smooth [...] Sectioning reveals stellate patent and unremarkable lumina. [employer] sections are submitted for microscopic examination asfollows: AC anterior cervix; PC posterior cervix; AE anteriorendometrium, to include intramural nodule; PE posterior endometrium; RT right fallopian tube; LT left fallopian tube. (6 blocks) alex cain/Aileeneported: 05/26/2021 16:13Electronically Signed Out By Chester Morales M.D. zw[facility] [place] [address]Technical component performed at [facility], Histopathology, [address] [place] [address], [id number].Reported at [facility], [address] [place] [address], [facility].This report may include immunohi stochemical or in-situ hybridizationresults. Testing was developed and the performance characteristicsdetermined by [facility], as required byCLIA '88. The FDA has determined that approval for specific use is notnecessary for clinical use. The quality of Hematoxylin and Eosin stainsand as applicable, for all immunohistochemical and/or special stains,including positive and negative controls, were reviewed and consideredappropriate.ICD codes: N93.8 D25.9CPT4 codes: A: 30161O Name Value Range Interpretation Code Description Data Isabel rce(s) Supporting Document(s) ID Date Data Source [id number] 05/22/2021 04:39:06 PM EDT [facility] ALPHONSE SPEC EXP DATE 05/27/2021ATI ENT ABO/Rh AB POSITIVEANTIBODY SCREEN NEGATIVETESTING SITE PERFORMED AT [address] [place] [address] Name Value Range Interpretation Code Description Data Isabel rce(s) Supporting Document(s) ID Date Data Source [id number] 05/22/2021 03:35:46 PM EDT [facility] [employer] Name Value Range Interpretation Code Description Data Isabel rce(s) Supporting Document(s) HCG,QUANT PREG <1 mU/mL [facility] [employer] ALPHONSE INTERPRETATION:LESS THAN 6 NEGATIVE 6 - 10 BORDERLINE (SUGGEST REPEAT IN 48 HOURS) APPROX HCG RANGE WEEKS POST LMP 11 - 130 3 - 4 WEEKS 75 - 2600 4 - 5 WEEKS 850 - 48871 5 - 6 WEEKS 4000 - 798257 6 - 7 [id number] - [id number] 7 - 12 [id number] - [id number] 12 - 16 WEEKS 1400 - 08188 16 - 29 WEEKS 940 - 81272 29 - 41 WEEKS ID Date Data Source [id number] 05/22/2021 03:29:35 PM EDT [facility] [employer] Name Value Range Interpretation Code Description Data Isabel rce(s) Supporting Document(s) SODIUM 139 mmol/L (136-145) [facility] POTASSIUM 4.7 mmol/L (3.6-5.2) [facility] CHLORIDE 109 mmol/L (100-108) H [facility] CO2 26 mmol/L (22-31) [facility] ANION GAP 4 mmol/L (7-16) L [facility] UREA NITROGEN 14 mg/dL (7-24) [facility] CREATININE 0.81 mg/dL (0.60-1.00) [facility] BUN/CREAT RATIO 17.3 RATIO (10.0-20.0) [facility] GLUCOSE 84 mg/dL (70-99) [facility] CALCIUM 8.4 mg/dL (8.4-10.2) [facility] GFR >60 ml/min/1.73m2 (>59) [facility] GFR ( AMER) >60 ml/min/1.73m2 (>59) [facility] GFR INTERPRETATION [facility] --NORMAL KIDNEY FUNCTION OR MILD DISEASE - GFR >OR= 60CHRONIC KIDNEY DISEASE - GFR 15 - 59RENAL FAILURE - GFR <15 Est. GFR calculation based on the MDRDstudy equation, which assumes a steadystate for creatinine. Est. GFR should notbe used for medication dosing. ID Date Data Source [id number] 05/22/2021 02:50:13 PM EDT [facility] Name Value Range Interpretation Code Description Data [facility](s) Supporting Document(s) WBC 8.0 10*3/uL (4.1-11.0) [facility] [place] RBC 4.79 10*6/uL (4.00-5.40) [facility] HGB 11.6 g/dL (12.0-16.0) L [facility] HCT 37.0 % (36.0-47.0) [facility] PERFORMED AT [address] [place] [address] MCV 77.1 fL (80.0-95.0) L [facility] MCH 24.2 pg (27.0-32.0) L [facility] MCHC 31.4 g/dL (32.0-36.0) L [facility] RDW 17.9 % (10.5-14.5) H [facility] PLT 320 10*3/uL (150-450) [facility] MPV 7.6 fL (7.1-10.7) [facility] ID Date Data Source [id number] 05/21/2021 12:00:00 AM EDT [facility] Name Value Range Interpretation Code Description Data Isabel rce(s) Supporting Document(s) SARS-COV-2 Negative [facility] This lab was ordered by Portillo and re ported by Portillo. 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 [facility] Medical History Asthma Environmental allergies History of [...] completed: Associate degree: academic program service: No jail: No current occupational status: unemployed pets and animals: Yes pets and animals: dog(s) Hx Recent Travel (where): No sexually active: Yes do you think of yourself as: straight/heterosexual current gender identity: female alcohol intake: current alcohol intake frequency: holidays/special occasions only substance use type: does not use bre/advent: Christian do you feel safe at home: Yes [...] uterine and vaginal bleeding, unspecified SNOMED Code(s): 37480137986309 Category: Medical (3) Morbid obesity with BMI of 50.0-59.9, adult: Status: Acute Code(s): E66.01 - Morbid (severe) obesity due to excess ca lories; Z68.43 - Body mass index [BMI] 50.0-59.9, adult SNOMED Code(s): 278531290 Category: Medical Orders: Referrals Gynecologic Surgery Referral N93.9 - Abnormal uterine and vaginal bleeding, unspecified, E66.01 - Morbid (severe) obesity due to excess calories, Z68.43 - Body mass index [BMI] 50.0-59.9, adult Coding Level of Care Code 14727 Est Pt Intermediate Comp Diagnoses Preoperative exam for gynecologic surgery Z01.818 Abnormal uterine bleeding (AUB) N93.9 Morbid obesity with BMI of 50.0-59.9, adult E66.01; Z68.43 <Electronically signed by Phyllis Martinez DO> 01/30/21 0607 Name Value Range Interpretation Code Description Data Isabel rce(s) Supporting Document(s) ID Date Data Source [id number] 06/13/2020 07:13:00 AM EST [facility] LAST MENSTRUAL PERIOD 05/21/2048JMK66-221U ollection Technique: BRUSH-ALONEPATIENT INFORMATION: [id number] CYTOLOGY: NEGATIVEPREVIOUS TREATMENT: NONEBody Site: CERVIX Name Value Range Interpretation Code Description Data Isabel rce(s) Supporting Document(s) Microscopic observation [Identifier] in Cervix by Cyto stain.thin pre p [facility] ID Date Data Source [id number] 06/02/2020 11:43:00 AM EDT [facility] Patient Name: TOYA MAYA : 1990 Sex: F Pt Unit #: [id number] Location:[facility] Provider: Visit Date/Time: 06/02/20 Primary Insurance: [facility] Secondary Insurance: Self Pay Intake Vital Signs [...] Delivery Method room air 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 LAST PAP WAS 08/07/17 NO HX ABN PAPS IN PAST.PAP IS DUE. SHE THINKS SHE MAY HAVE HAD A STD IN PAST ? [place] . SHE STATES THAT SHE IS ON METFORMIN 500 MG FOR HER "CYCLES" SHE DOES NOT THINK SHE HAS PCOS. 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 SHE DOES NOT USE ANY CONTRACEPTION STATES THATS . HER MATERNAL GM HAD BREAST CANCER. SHE WILL NEED REFILLS OF HER METFORMIN TO [facility]. SHE DOES NOT DO SBE DISCUSSED IMPORTANCE. System Administrator Required: No Is patient in pain?: No [...] Screening Screening Have you traveled outside of [facility] or [facility] in the last 14 days.: No Has [...] completed: Associate degree: academic program service: No jail: No current occupational status: unemployed pets and animals: Yes pets and animals: dog(s) Hx Recent Travel (where): No sexually active: Yes do you think of yourself as: straight/heterosexual current gender identity: female alcohol intake: current alcohol intake frequency: holidays/special occasions only substance use type: does not use bre/advent: Christian do you feel safe at home: Yes [...] to the room accompanied by a nursing automation test developer. The patient was assisted into lithotomy position. [...] Positive Today Z12.4 <Electronically signed by Dylon Schmid MD> 06/02/20 1221 Name Value Range Interpretation Code Description Data Isabel rce(s) Supporting Document(s) Procedure Social History No Information
== END 2021-06-01 01:49 | disposition left against medical advice (07) ==
LOC: M ED 00:38
DX: Z53.29 Procedure and treatment not carried out because of patient's decision for other reasons (principal)

== ENCOUNTER → 2021-06-13 | Outpatient (CLI) | payer OTHER, MEDICAID ==
[2021-06-13 15:51] LABS: BASO % 0.6 % (0.0-1.0); EOS # 0.2 10^3/uL (0.0-0.5); EOS % 3.2 % (0.0-3.0); HEMATOCRIT 38.4 % (36.0-47.0); HEMOGLOBIN 11.3 g/dl (12.0-15.5); LYMPH # 2.7 10^3/uL (1.5-5.0); MEAN CORPUSCULAR HEMOGLOBIN 23.5 pg (27.0-33.0); MEAN CORPUSCULAR HGB CONC 29.4 g/dl (32.0-36.5); MEAN CORPUSCULAR VOLUME 79.8 fl (80.0-96.0); MONO # 0.7 10^3/uL (0.0-0.8); MONO % 9.3 % (2.0-8.0); NEUTROPHILS # 3.5 10^3/uL (1.5-8.5); NEUTROPHILS % 48.8 % (36.0-66.0); PLATELET COUNT, AUTOMATED 342 10^3/uL (150-450); RED BLOOD COUNT 4.81 10^6/uL (4.00-5.40); WHITE BLOOD COUNT 7.1 10^3/uL (4.0-10.0)
[2021-06-13 16:13] LABS: HEMOGLOBIN A1c 5.6 %
[2021-06-13 16:23] LABS: ALBUMIN 3.4 GM/DL (3.2-5.2); ALT/SGPT 55 U/L (12-78); BILIRUBIN,TOTAL 0.2 MG/DL (0.2-1.0); BLOOD UREA NITROGEN 11 MG/DL (7-18); CALCIUM LEVEL 8.9 MG/DL (8.5-10.1); CARBON DIOXIDE LEVEL 27 MEQ/L (21-32); CHLORIDE LEVEL 110 MEQ/L (98-107); CHOLESTEROL LEVEL 139 MG/DL (<200); CHOLESTEROL RISK RATIO 3.756 (<5); FOLLICLE STIMULATING HORMONE 5.6 mIU/mL; FREE T4 1.09 NG/DL (0.76-1.46); GLOMERULAR FILTRATION RATE > 60.0 (>60); GLUCOSE, FASTING 92 MG/DL (70-100); HDL CHOLESTEROL 37 MG/DL (>40); LDL CHOLESTEROL 75 MG/DL (<100); LUTEINIZING HORMONE 7.6 mIU/mL; NON-HDL-C 102 MG/DL; POTASSIUM SERUM 3.8 MEQ/L (3.5-5.1); PROGESTERONE 0.24 NG/ML; SODIUM LEVEL 142 MEQ/L (136-145); TESTOSTERONE 27 NG/DL (14-76); TOTAL PROTEIN 6.5 GM/DL (6.4-8.2); TRIGLYCERIDES LEVEL 135 MG/DL (<150)
== END ==
LOC: M WUC 11:08
PROVIDERS: ATTEND Nurse Practitioner Family
DX: Z00.00 Encounter for general adult medical examination without abnormal findings (principal); Z90.710 Acquired absence of both cervix and uterus; N30.01 Acute cystitis with hematuria; R41.0 Disorientation, unspecified

== ENCOUNTER → 2023-11-06 | Outpatient (CLI) | payer OTHER ==
[~2023-11-06] MED LIST: E-Z-GAS II EFFERVESCENT PACKET (SODIUM BICARB./CITRIC ACID/SIMETHICONE) As Ordered ONE; E-Z-HD 98% w/w 340GM SUSP BTL As Ordered ONE; E-Z-PAQUE 96% w/w SUSP 176GM BTL As Ordered ONE
== END ==
LOC: M RAD 07:43
PROVIDERS: ATTEND Physician Assistant Medical
DX: R13.10 Dysphagia, unspecified (principal)

== ENCOUNTER 2024-01-14 07:59 | Day surgery (SDC) | payer OTHER ==
[~2024-01-14] VITALS: Ht 167.6 cm; Wt 132.8 kg
[~2024-01-14 07:59] MED LIST changes: +CLAR10CA3 PO; -E-Z-GAS II EFFERVESCENT PACKET (SODIUM BICARB./CITRIC ACID/SIMETHICONE) As Ordered ONE; -E-Z-HD 98% w/w 340GM SUSP BTL As Ordered ONE; -E-Z-PAQUE 96% w/w SUSP 176GM BTL As Ordered ONE; +EXCETAB32 PO; +FAMO1TAB11 PO; +GLYCOPYRROLATE INJ 0.2 MG/ML 2 ML VIAL As Ordered ONE; +LIDOCAINE 2% 100MG/5ML SDV (FOR ANES.) As Ordered ONE; +VENTAER; +fentaNYL 100 MCG/2 ML INJECTION As Ordered ONE; +propofoL 200 MG/20 ML VIAL As Ordered ONE
[2024-01-14] MEDS: NS 1,000 ML IV ONE (08:12)
[2024-01-14 10:04] VITALS: BP 125/69; O2SAT 98
== END 2024-01-14 10:10 | disposition home or self-care (01) ==
LOC: M OPP 07:59
PROVIDERS: ATTEND Internal Medicine Gastroenterology
DX: K22.2 Esophageal obstruction (principal); K22.89 Other specified disease of esophagus; R13.10 Dysphagia, unspecified; R12 Heartburn; J45.909 Unspecified asthma, uncomplicated; G43.909 Migraine, unspecified, not intractable, without status migrainosus; Z79.1 Long term (current) use of non-steroidal anti-inflammatories (NSAID); Z79.51 Long term (current) use of inhaled steroids
CPT/HCPCS: 43239; 43249; 88305; J3010